=== PATIENT | male | born 1965 | race Caucasian/White ===

== ENCOUNTER 2021-02-18 05:27 | Inpatient (IN) | payer MEDICAID ==
[2021-02-12 12:57] LABS: BASOPHILS # (AUTO) 0.1 X10'3 (0-0.2); BASOPHILS % (AUTO) 0.7 % (0-1); EOSINOPHILS # (AUTO) 0.1 X10'3 (0-0.9); LYMPHOCYTES # (AUTO) 1.8 X10'3 (1.1-4.8); LYMPHOCYTES % (AUTO) 19.9 % (21-51); MEAN CORPUSCULAR HEMOGLOBIN 28.6 PG (27.0-31.0); MEAN CORPUSCULAR HGB CONC 33.3 g/dL (33.0-36.5); MEAN CORPUSCULAR VOLUME 85.7 FL (78-98); MEAN PLATELET VOLUME 8.2 FL (7.4-10.4); MONOCYTES # (AUTO) 0.8 X10'3 (0-0.9); MONOCYTES % (AUTO) 9.4 % (2-12); NEUTROPHILS # (AUTO) 6.1 X10'3 (1.8-7.7); PRE OP HEMATOCRIT 47.7 % (42.0-52.0); PRE OP HEMOGLOBIN 15.9 g/dL (14.0-17.9); PRE OP PLATELET COUNT 242 X10'3 (140-440); RED BLOOD COUNT 5.56 X10'6 (4.70-6.10); RED CELL DISTRIBUTION WIDTH 14.1 % (11.5-14.5)
[2021-02-12 13:09] LABS: PRE OP INR 1.1 INR; PRE OP PROTIME 11.3 SECONDS (9.0-12.0)
[2021-02-12 13:12] LABS: ALBUMIN 3.9 G/DL (3.4-5.0); ALBUMIN/GLOBULIN RATIO 1.1 (1.1-1.5); ALKALINE PHOSPHATASE 102 IU/L (46-116); BLOOD UREA NITROGEN 19 MG/DL (7-18); BUN/CREATININE RATIO 20.4 (5.4-32.0); CALCIUM 8.8 MG/DL (8.5-10.1); CHLORIDE 105 MMOL/L (99-107); CREATININE 0.93 MG/DL (0.60-1.10); PRE OP ALT 30 U/L (30-65); PRE OP ANION GAP 6 (8-16); PRE OP AST 10 U/L (10-37); PRE OP BILIRUB, TOTAL 0.7 MG/DL (0.0-1.0); PRE OP GLUCOSE 84 MG/DL (70-104); PRE OP POTASSIUM 4.3 MMOL/L (3.4-5.1); PRE OP SODIUM 142 MMOL/L (135-145); TOTAL CARBON DIOXIDE 30.6 MMOL/L (24-32); TOTAL PROTEIN 7.6 G/DL (6.4-8.2); eGFR 85 ML/MIN
[2021-02-12 13:42] LABS: CLARITY,URINE CLEAR (Clear); COLOR,URINE YELLOW (Yellow); GLUCOSE, URINE NEGATIVE (Neg); PROTEIN,URINE NEGATIVE (Neg); UA COLLECTION TYPE VOIDED
[2021-02-12 13:43] LABS: KETONES,URINE NEGATIVE (Neg); LEUKOCYTE ESTERASE ,URINE NEGATIVE (Neg); NITRITES, URINE NEGATIVE (Neg); OCCULT BLOOD,URINE NEGATIVE (Neg); UROBILINOGEN,URINE 0.2 E.U/dL (0.2-1.0)
[2021-02-18] VITALS (13 sets, daily range): BP systolic 102–171; BP diastolic 63–103
[~2021-02-18] VITALS: Ht 182.9 cm; Wt 122.5 kg
[~2021-02-18 05:27] MED LIST: NO HOME MEDS; ringers solution, lacted 1,000 ML IV SCH
[2021-02-18] MEDS ORDERED: famotidine 20mg tablet PO ONE (05:30)
[2021-02-18] MEDS ORDERED: heparin, porcine 5000 units/ml vial SQ ONE (05:30)
[2021-02-18] MEDS ORDERED: metroNIDAZOLE-Flagyl 500mg/NS 100ml IVPB IV ONE (05:30)
[2021-02-18] MEDS ORDERED: ceFOXitin 2GM-NS 100mL ADDvant 100 ML IV ONE (05:30)
[2021-02-18] MEDS ORDERED: MALTODEXTRIN/FRUCTOSE 0.68 KCAL/ML LIQUID 296ML BOTTLE PO ONE (05:30)
[2021-02-18] MEDS ORDERED: metroNIDAZOLE-Flagyl 500mg/NS 100 ML IV ONE (06:40)
[2021-02-18] MEDS ORDERED: heparin 10,000 units/1 ML INJ ONE (06:40)
[2021-02-18] MEDS ORDERED: BUPIVAcaine/PF 2.5mg/ml (0.25%) 10ml vial ONE ×2 (06:41→07:13)
[2021-02-18] MEDS ORDERED: iohexol 300 MG/1 ML 50ml polymer ONE (06:41)
[2021-02-18] MEDS ORDERED: povidone-iodine 10% ointment 1 APPLIC APPLIC TP ONE (06:41)
[2021-02-18] MEDS ORDERED: INDOCYANINE GREEN 25 MG/10 ML VIAL IV ONE (06:41)
[2021-02-18] MEDS ORDERED: LIDOCAINE 1%/EPI 1:100,000 inj. 10 ML multi-dose vial ONE (06:41)
[2021-02-18] MEDS ORDERED: labetalol 20mg/4ml (5mg/ml) syringe IV PRN (07:10)
[2021-02-18] MEDS ORDERED: ringers solution, lacted 1,000 ML IV SCH (07:10)
[2021-02-18] MEDS ORDERED: morphine 2 MG/ML inj. syringe IV PRN (07:10)
[2021-02-18] MEDS ORDERED: fentaNYL/PF 50MCG/1 ML 2ML syringe IV PRN ×2 (07:10)
[2021-02-18] MEDS ORDERED: hydrALAZINE 20mg/ml inj. IV PRN (07:10)
[2021-02-18] MEDS ORDERED: ondansetron/PF 4mg/2ml inj IV PRN ×2 (07:10→14:30)
[2021-02-18] MEDS ORDERED: morphine 4 MG/ML inj SYRINge IV PRN (07:10)
[2021-02-18] MEDS ORDERED: BUPIVACAINE liposomal/PF 13.3 MG/ML vial IM ONE (07:13)
[2021-02-18] MEDS ORDERED: midazolam 1 mg/ML 2ml injection ONE (07:15)
[2021-02-18] MEDS ORDERED: fentaNYL/PF 50MCG/1 ML 2ML syringe ONE ×2 (07:15→10:58)
[2021-02-18] MEDS ORDERED: propofol inj 20 ML IV ONE (07:17)
[2021-02-18] MEDS ORDERED: LIDOcaine 2% (20mg/ml) 5ml vial ONE (07:17)
[2021-02-18] MEDS ORDERED: dexamethasone sod phosphate 4mg/ml inj. ONE (07:18)
[2021-02-18] MEDS ORDERED: ondansetron/PF 4mg/2ml inj ONE (07:18)
[2021-02-18] MEDS ORDERED: rocuronium 10mg/ml inj IV ONE ×4 (07:18→12:17)
[2021-02-18] MEDS ORDERED: mineral oil 10ml sterile, topical TP ONE (08:03)
[2021-02-18] MEDS ORDERED: LIDOcaine 1% 30ml preserv. free vial ONE ×2 (09:04→10:00)
[2021-02-18] MEDS ORDERED: labetalol 20mg/4ml (5mg/ml) syringe IV ONE (10:32)
[2021-02-18] MEDS ORDERED: glycopyrrolate 0.2mg/ml inj ONE (12:44)
[2021-02-18] MEDS ORDERED: neostigmine methylsulfate 1 MG/ML 10ml vial ONE (12:44)
--- NOTE | 2021-02-18 13:20 | NUR ---
ARRIVED IN PACU UNRESPONSIVE AND COLOR POOR, BLUISH BARBOZA. SA02 UNABLE TO OBTAIN. DR. TABARES IN ATTENDANCE. IMMEDIATE AMBU BAG INITIATED UNABLE TO VENTILATE. HR DECREASING ALONG WITH BP, PT STILL UNRESPONSIVE. CODE CASSIUS CALLED. DR SUH, DR. GUTIERRES PARTICIPATED IN RESUSCITATION. PLEASE SEE CODE BLUE SHEET. TRANSFERRED TO ICU INTUBATED REPORT TO DR. HEARD, CARE HAND OFF TO ICU NURSE @ [id number].
[2021-02-18] MEDS ORDERED: propofol 1000mg/100ml bottle 100 ML IV ONE (13:55)
--- NOTE | 2021-02-18 14:00 | NUR ---
Assumed care of pt. Dr Reveles and Dr Washington at bedside.
[2021-02-18] MEDS ORDERED: CISatracurium **Bolus** 2 mg/ml inj IV PRN (14:05)
[2021-02-18] MEDS ORDERED: magnesium 4gm in 100ml NS 100 ML IV PRN (14:05)
[2021-02-18] MEDS ORDERED: magnesium 2GM in 50ml NS 50 ML IV PRN (14:05)
[2021-02-18] MEDS ORDERED: potassium Cl 20 mEq SR tablet PO PRN (14:05)
[2021-02-18] MEDS ORDERED: magnesium Cl slow-release 64mg tablet PO PRN (14:05)
[2021-02-18] MEDS ORDERED: acetaminophen 325mg tablet PO PRN ×2 (14:30)
[2021-02-18] MEDS ORDERED: LIDOcaine 2% 10ml TOPICAL JELLY (Urojet) TP ONE (14:30)
[2021-02-18] MEDS: normal saline 1000ml 1,000 ML IV SCH (14:30)
[2021-02-18] MEDS ORDERED: ipratropium/albuterol 3ml nebule NEB PRN (14:30)
[2021-02-18] MEDS ORDERED: furosemide 40mg/4ml inj IV ONE (14:40)
[2021-02-18] MEDS: propofol 1000mg/100ml bottle 100 ML IV SCH ×2 (15:01→22:01)
[2021-02-18] MEDS: FENTANYL-0.9 % NACL/PF 100 ML IV PRN ×3 (15:02→22:43)
[2021-02-18] MEDS: CISatracurium besylate inj. 100 MG in normal saline 100ml IV soln 90 ML IV PRN ×2 (15:03→22:02)
[2021-02-18 15:15] LABS: HEMATOCRIT 46.1 % (42.0-52.0); MEAN CORPUSCULAR HEMOGLOBIN 28.3 PG (27.0-31.0); MEAN CORPUSCULAR HGB CONC 32.5 g/dL (33.0-36.5); MEAN CORPUSCULAR VOLUME 87.1 FL (78-98); MEAN PLATELET VOLUME 8.8 FL (7.4-10.4); PLATELET COUNT 264 X10'3 (140-440); RED CELL DISTRIBUTION WIDTH 14.1 % (11.5-14.5)
[2021-02-18] MEDS ORDERED: vancomycin/NS 1 GM ADD-VANTAGE 250 ML IV ONE (15:20)
[2021-02-18 15:22] LABS: ABG BASE EXCESS -9.4 mmol/L (-2.0-2.0); ABG HCO3 18.7 mmol/L (22.0-26.0); ABG OXYGEN SATURATION 97.7 % (94-97); ABG PCO2 (T) 47.4 mmHg (35.0-48.0); FCOHb 0.3 % (0.0-3.9); FMetHb 0.6 % (0.0-1.5); FO2Hb 96.8 % (94-97); PATIENT TEMPERATURE 36.5; PEEP 10 cm H2O; RESPIRATORY RATE 16 b/min; TIDAL VOLUME 568 mL; TOTAL HEMOGLOBIN 15.8 G/dl (14.0-18.0)
[2021-02-18] MEDS: pantoprazole 40 MG vial IV SCH (15:23)
[2021-02-18 15:24] LABS: PARTIAL THROMBOPLASTIN TIME 27 SECONDS (22-32)
[2021-02-18 15:33] LABS: ALANINE AMINOTRANSFERASE 78 U/L (12-78); ALBUMIN 3.3 G/DL (3.4-5.0); ALKALINE PHOSPHATASE 90 IU/L (46-116); ANION GAP 20 (8-16); ASPARTATE AMINO TRANSFERASE 52 U/L (10-37); BILIRUBIN,TOTAL 0.8 MG/DL (0.1-1.0); BLOOD UREA NITROGEN 18 MG/DL (7-18); BUN/CREATININE RATIO 9.7 (5.4-32.0); CALCIUM 8.1 MG/DL (8.5-10.1); CHLORIDE 103 MMOL/L (99-107); CREATININE 1.85 MG/DL (0.60-1.10); GLUCOSE 246 MG/DL (70-104); POTASSIUM 4.8 MMOL/L (3.5-5.1); SODIUM 141 MMOL/L (135-145); TOTAL CARBON DIOXIDE 18.5 MMOL/L (24-32); TOTAL PROTEIN 6.7 G/DL (6.4-8.2); eGFR 38 ML/MIN
[2021-02-18] MEDS: thiamine inj. 100 MG in normal saline 100ml IV soln 100 ML IV SCH (15:34)
[2021-02-18] MEDS: folic acid 1mg/0.2ml inj IV SCH (15:42)
[2021-02-18 15:44] LABS: BETA HCG,QUANTITATIVE < 1.0 mIU/ml; LDL CHOLESTEROL 110 MG/DL (50-100); MAGNESIUM 1.8 MG/DL (1.5-2.4); PHOSPHORUS 6.7 MG/DL (2.3-4.5); PLATELET ESTIMATE NORMAL; TOTAL CELLS COUNTED 100; TROPONIN I < 0.04 NG/ML (0.0-0.05)
[2021-02-18 15:47] LABS: PLATELET COUNT 264 X10'3 (140-440)
[2021-02-18] MEDS: dexamethasone sod phosphate 10mg/ml inj IV SCH (15:55)
[2021-02-18] MEDS ORDERED: dexamethasone sod phosphate 10mg/ml inj IM SCH (16:00)
[2021-02-18 16:14] LABS: D-DIMER 19.55 MG/L FEU (0-0.50); PARTIAL THROMBOPLASTIN TIME 27 SECONDS (22-32)
[2021-02-18 16:29] LABS: LACTIC SEPSIS 9.1 MMOL/L (0.4-2.0)
[2021-02-18] MEDS: meperidine/PF 25mg/ml syringe IV SCH ×2 (16:30→20:54)
[2021-02-18] MEDS: mineral oil/petrolatum ophthal oint EACHEYE SCH ×2 (16:36→20:55)
[2021-02-18 16:46] LABS: OXYGEN SATURATION (MIXED VEN) 73.6 % (60-80); PO2 MIXED VENOUS (TEMP COR) 39.8 mmHg (35-46)
[2021-02-18] MEDS: nitroGLYCERIN-Tridil 50MG/D5W 250 ML IV PRN (17:24)
[2021-02-18] MEDS: piperacillin/tazo 4.5gm/100ml 100 ML IV SCH (17:53)
--- NOTE | 2021-02-18 18:25 | NUR ---
Problems reprioritized. Patient report given, questions answered & plan of care reviewed with JUNIOR Simental.
[2021-02-18 19:33] LABS: ABG BASE EXCESS -4.6 mmol/L (-2.0-2.0); ABG HCO3 18.1 mmol/L (22.0-26.0); ABG OXYGEN SATURATION 97.8 % (94-97); ABG PCO2 (T) 24.8 mmHg (35.0-48.0); ABG PO2 (T) 86.1 mmHg (75.0-100.0); FCOHb 0.1 % (0.0-3.9); FMetHb 0.3 % (0.0-1.5); FO2Hb 97.4 % (94-97); PATIENT TEMPERATURE 33.9; PEEP 10 cm H2O; RESPIRATORY RATE 20 b/min; TIDAL VOLUME 500 mL; TOTAL HEMOGLOBIN 16.5 G/dl (14.0-18.0)
[2021-02-18] MEDS ORDERED: furosemide 40mg/4ml inj IV SCH (20:00)
[2021-02-18] MEDS: insulin Lispro (HumaLOG) vial - multi-dose SQ SCH (20:00)
[2021-02-18] MEDS ORDERED: piperacillin/tazo 4.5gm/100ml 100 ML IV SCH (20:00)
--- NOTE | 2021-02-18 20:14 | NUR ---
I have received report and assumed care of pt. Pt resting in bed rise and fall of chest cavity equile and symmetrical, Myclonic jerking noted at 27 sec interval, upper extremities only, does not respond to verbal stimuli and no notable tactical response noted, eyes are pin point negative dolls eyes no startle reflex noted. Dr. Washington called [phone]) up dated on pts condition. Spoke to Dr. Blankenship new orders for 24 hour eeg and to turn peep down to 8, report given to receiving RN, plan of care reviewed EEG osmani paged.
[2021-02-18] MEDS: heparin, porcine 5000 units/ml vial SQ SCH (20:54)
[2021-02-18 21:52] LABS: ALBUMIN 2.1 G/DL (3.4-5.0); ANION GAP 14 (8-16); BLOOD UREA NITROGEN 13 MG/DL (7-18); BUN/CREATININE RATIO 14.9 (5.4-32.0); CHLORIDE 116 MMOL/L (99-107); CKMB RELATIVE INDEX 1.5 RATIO (0-2.5); CREATINE KINASE 214 U/L (39-308); CREATININE 0.87 MG/DL (0.60-1.10); GLUCOSE 150 MG/DL (70-104); MAGNESIUM 1.2 MG/DL (1.5-2.4); SODIUM 147 MMOL/L (135-145); TOTAL CARBON DIOXIDE 16.6 MMOL/L (24-32); TROPONIN I 0.05 NG/ML (0.0-0.05); eGFR > 90 ML/MIN
[2021-02-18 22:03] LABS: CALCIUM 5.6 MG/DL (8.5-10.1); POTASSIUM 2.4 MMOL/L (3.5-5.1)
[2021-02-18] MEDS ORDERED: potassium Cl 20 mEq/100mL bag IV ONE (22:10)
[2021-02-18] MEDS: CALCIUM GLUC 1gm/50ml NACL,iso 50 ML IV SCH (22:43)
[2021-02-18] MEDS: potassium Cl 20 mEq/100mL bag IV SCH (23:15)
[2021-02-19] VITALS (24 sets, daily range): BP systolic 99–192; BP diastolic 57–103
[2021-02-19] MEDS: dexamethasone sod phosphate 10mg/ml inj IV SCH ×3 (00:39→16:00)
[2021-02-19] MEDS: piperacillin/tazo 4.5gm/100ml 100 ML IV SCH ×3 (00:39→16:00)
[2021-02-19] MEDS: mineral oil/petrolatum ophthal oint EACHEYE SCH ×6 (00:39→20:12)
[2021-02-19] MEDS: CALCIUM GLUC 1gm/50ml NACL,iso 50 ML IV SCH (00:39)
[2021-02-19] MEDS: potassium Cl 20 mEq/100mL bag IV SCH ×2 (00:40→01:17)
[2021-02-19] MEDS: meperidine/PF 25mg/ml syringe IV SCH ×6 (00:53→20:11)
[2021-02-19 02:35] LABS: ABG BASE EXCESS -3.9 mmol/L (-2.0-2.0); ABG HCO3 18.4 mmol/L (22.0-26.0); ABG PCO2 (T) 23.4 mmHg (35.0-48.0); ABG PO2 (T) 96.1 mmHg (75.0-100.0); FMetHb 0.3 % (0.0-1.5); FO2Hb 97.7 % (94-97); PATIENT TEMPERATURE 33.6; PEEP 8 cm H2O; RESPIRATORY RATE 20 b/min; TIDAL VOLUME 500 mL; TOTAL HEMOGLOBIN 15.7 G/dl (14.0-18.0)
[2021-02-19] MEDS: vancomycin/NS 1 GM ADD-VANTAGE 250 ML IV SCH ×2 (03:41→16:00)
[2021-02-19] MEDS: FENTANYL-0.9 % NACL/PF 100 ML IV PRN ×5 (03:41→23:04)
[2021-02-19 03:51] LABS: BASOPHILS % (AUTO) 0.3 % (0-1); EOSINOPHILS % (AUTO) 0.1 % (0-6); HEMATOCRIT 43.4 % (42.0-52.0); HEMOGLOBIN 14.4 g/dl (14.0-17.9); LYMPHOCYTES # (AUTO) 0.6 X10'3 (1.1-4.8); LYMPHOCYTES % (AUTO) 4.3 % (21-51); MEAN CORPUSCULAR HEMOGLOBIN 28.5 PG (27.0-31.0); MEAN CORPUSCULAR HGB CONC 33.3 g/dL (33.0-36.5); MEAN CORPUSCULAR VOLUME 85.6 FL (78-98); MEAN PLATELET VOLUME 8.7 FL (7.4-10.4); MONOCYTES # (AUTO) 0.7 X10'3 (0-0.9); MONOCYTES % (AUTO) 4.7 % (2-12); NEUTROPHILS # (AUTO) 12.7 X10'3 (1.8-7.7); NEUTROPHILS % (AUTO) 90.6 % (42-75); PLATELET COUNT 208 X10'3 (140-440); RED BLOOD COUNT 5.07 X10'6 (4.70-6.10); RED CELL DISTRIBUTION WIDTH 13.8 % (11.5-14.5)
[2021-02-19 03:53] LABS: PARTIAL THROMBOPLASTIN TIME 24 SECONDS (22-32)
[2021-02-19 03:55] LABS: ALANINE AMINOTRANSFERASE 65 U/L (12-78); ALBUMIN 2.9 G/DL (3.4-5.0); ALBUMIN/GLOBULIN RATIO 0.9 (1.1-1.5); ALKALINE PHOSPHATASE 75 IU/L (46-116); AMYLASE 20 U/L (25-115); ANION GAP 14 (8-16); ASPARTATE AMINO TRANSFERASE 37 U/L (10-37); BILIRUBIN,TOTAL 0.7 MG/DL (0.1-1.0); BLOOD UREA NITROGEN 16 MG/DL (7-18); BUN/CREATININE RATIO 12.1 (5.4-32.0); CHLORIDE 107 MMOL/L (99-107); CREATININE 1.32 MG/DL (0.60-1.10); GLUCOSE 182 MG/DL (70-104); LIPASE < 50 U/L (73-393); MAGNESIUM 1.7 MG/DL (1.5-2.4); PHOSPHORUS 2.7 MG/DL (2.3-4.5); SODIUM 142 MMOL/L (135-145); TOTAL PROTEIN 6.1 G/DL (6.4-8.2); TRIGLYCERIDES 82 MG/DL (20-135); eGFR 57 ML/MIN
[2021-02-19 03:56] LABS: POTASSIUM 3.5 MMOL/L (3.5-5.1)
[2021-02-19] MEDS: normal saline 1000ml 1,000 ML IV SCH ×3 (04:13→22:07)
[2021-02-19] MEDS: propofol 1000mg/100ml bottle 100 ML IV SCH ×2 (07:15→21:02)
--- NOTE | 2021-02-19 07:30 | NUR ---
Dr Novak rounded. He asked about pt's bradycardia, and asked about abnormal labs, and urine output. After assessing pt he removed ureteral stents.
[2021-02-19] MEDS ORDERED: enoxaparin 40mg/0.4ml syringe SUBCUT SCH (08:00)
[2021-02-19] MEDS ORDERED: folic acid inj. 2 MG, thiamine inj. 100 MG, MVI, adult No.4 with vit. K 10 ML in dextro... IV SCH ×4 (08:00)
[2021-02-19] MEDS: pantoprazole 40 MG vial IV SCH (08:15)
[2021-02-19] MEDS: thiamine inj. 100 MG in normal saline 100ml IV soln 100 ML IV SCH (08:16)
[2021-02-19] MEDS: heparin, porcine 5000 units/ml vial SQ SCH ×2 (08:16→20:00)
[2021-02-19] MEDS: folic acid 1mg/0.2ml inj IV SCH (08:18)
[2021-02-19] MEDS: insulin Lispro (HumaLOG) vial - multi-dose SQ SCH ×3 (09:00→17:39)
[2021-02-19 09:06] LABS: ALBUMIN 3.1 G/DL (3.4-5.0); ANION GAP 12 (8-16); BLOOD UREA NITROGEN 19 MG/DL (7-18); CALCIUM 8.6 MG/DL (8.5-10.1); CHLORIDE 104 MMOL/L (99-107); CKMB RELATIVE INDEX 2.7 RATIO (0-2.5); CREATINE KINASE 312 U/L (39-308); CREATININE 1.36 MG/DL (0.60-1.10); GLUCOSE 174 MG/DL (70-104); MAGNESIUM 1.8 MG/DL (1.5-2.4); POTASSIUM 3.7 MMOL/L (3.5-5.1); SODIUM 138 MMOL/L (135-145); TROPONIN I < 0.04 NG/ML (0.0-0.05); eGFR 55 ML/MIN
[2021-02-19] MEDS: CISatracurium besylate inj. 100 MG in normal saline 100ml IV soln 90 ML IV PRN (09:27)
[2021-02-19] MEDS ORDERED: NORepinephrine 1 mg/ml inj IV ONE (10:00)
--- NOTE | 2021-02-19 11:19 | NUR ---
Initial: Pt admitted for colostomy reversal, underwent colostomy takedown 02/18 per EMR. Gerardo javier called in recovery room, pt subsequently intubated and sedated. Propofol currently at 3.489 providing 92kcals/day. Per Surgeon note, pt okay to receive TF; though waiting for pt to become more stable per Counsellors. TF recs provided below, may adjust depending on Propofol rate. No open wounds documented. Will continue to monitor need for nutrition support. Recs: 1) IF prolonged intubation, continuous TF using Vital HP at 90ml/hr goal providing 2160ml volume, 2160kcals, 189g protein, 1814ml H2O 2) IF TF, additional free water 100ml Q4H; monitor serum Na 3) IF TF, PALB QM/Th; daily wts 4) Routine bowel care 5) Monitor for TF tolerance 6) If extubated, advance to Regular diet as tolerated Addendum: 02/19/21 at [address] Amended: Links added.
[2021-02-19] MEDS ORDERED: epiNEPHrine 0.1mg/ml 10ml syringe ONE (14:00)
[2021-02-19 15:27] LABS: ALANINE AMINOTRANSFERASE 59 U/L (12-78); ALBUMIN/GLOBULIN RATIO 0.9 (1.1-1.5); ALKALINE PHOSPHATASE 73 IU/L (46-116); ANION GAP 12 (8-16); ASPARTATE AMINO TRANSFERASE 31 U/L (10-37); BILIRUBIN,TOTAL 0.8 MG/DL (0.1-1.0); BLOOD UREA NITROGEN 19 MG/DL (7-18); BUN/CREATININE RATIO 17.9 (5.4-32.0); CALCIUM 8.6 MG/DL (8.5-10.1); CHLORIDE 107 MMOL/L (99-107); CREATININE 1.06 MG/DL (0.60-1.10); GLUCOSE 156 MG/DL (70-104); POTASSIUM 3.4 MMOL/L (3.5-5.1); SODIUM 141 MMOL/L (135-145); TOTAL CARBON DIOXIDE 22.5 MMOL/L (24-32); TOTAL PROTEIN 6.3 G/DL (6.4-8.2); eGFR 73 ML/MIN
[2021-02-19] MEDS ORDERED: potassium Cl 40MEQ/250ML bag 270 ML IV PRN ×2 (15:35)
[2021-02-19 20:24] LABS: ABG BASE EXCESS -2.8 mmol/L (-2.0-2.0); ABG HCO3 19.5 mmol/L (22.0-26.0); ABG OXYGEN SATURATION 94.6 % (94-97); ABG PCO2 (T) 23.3 mmHg (35.0-48.0); ABG PO2 (T) 52.3 mmHg (75.0-100.0); ALLEN'S TEST POSITIVE; FCOHb 0.2 % (0.0-3.9); FMetHb 0.1 % (0.0-1.5); FO2Hb 94.3 % (94-97); PATIENT TEMPERATURE 32.6; PEEP 5 cm H2O; RESPIRATORY RATE 18 b/min; TIDAL VOLUME 500 mL; TOTAL HEMOGLOBIN 15.1 G/dl (14.0-18.0)
[2021-02-20] VITALS (23 sets, daily range): BP systolic 103–164; BP diastolic 42–81
[2021-02-20] MEDS: meperidine/PF 25mg/ml syringe IV SCH ×3 (00:25→07:39)
[2021-02-20] MEDS: mineral oil/petrolatum ophthal oint EACHEYE SCH ×7 (00:25→23:08)
[2021-02-20] MEDS: dexamethasone sod phosphate 10mg/ml inj IV SCH ×4 (00:25→23:08)
[2021-02-20] MEDS: piperacillin/tazo 4.5gm/100ml 100 ML IV SCH ×4 (00:30→23:08)
[2021-02-20 02:52] LABS: ABG BASE EXCESS -2.3 mmol/L (-2.0-2.0); ABG HCO3 21.5 mmol/L (22.0-26.0); ABG OXYGEN SATURATION 97.3 % (94-97); ABG PCO2 (T) 30.9 mmHg (35.0-48.0); ABG PO2 (T) 84.3 mmHg (75.0-100.0); FCOHb 0.1 % (0.0-3.9); FMetHb 0.4 % (0.0-1.5); FO2Hb 96.8 % (94-97); PATIENT TEMPERATURE 34.6; PEEP 5 cm H2O; RESPIRATORY RATE 18 b/min; TIDAL VOLUME 500 mL
[2021-02-20 03:09] LABS: BASOPHILS % (AUTO) 0.1 % (0-1); EOSINOPHILS % (AUTO) 0 % (0-6); HEMATOCRIT 36.1 % (42.0-52.0); LYMPHOCYTES # (AUTO) 0.4 X10'3 (1.1-4.8); LYMPHOCYTES % (AUTO) 2.2 % (21-51); MEAN CORPUSCULAR HEMOGLOBIN 28.4 PG (27.0-31.0); MEAN CORPUSCULAR HGB CONC 33.2 g/dL (33.0-36.5); MEAN CORPUSCULAR VOLUME 85.3 FL (78-98); MEAN PLATELET VOLUME 8.9 FL (7.4-10.4); MONOCYTES # (AUTO) 0.8 X10'3 (0-0.9); MONOCYTES % (AUTO) 4.8 % (2-12); NEUTROPHILS # (AUTO) 15.6 X10'3 (1.8-7.7); NEUTROPHILS % (AUTO) 92.9 % (42-75); PLATELET COUNT 170 X10'3 (140-440); RED BLOOD COUNT 4.22 X10'6 (4.70-6.10); RED CELL DISTRIBUTION WIDTH 13.8 % (11.5-14.5); WHITE BLOOD COUNT 16.8 X10'3 (4.5-11.0)
[2021-02-20 03:20] LABS: PARTIAL THROMBOPLASTIN TIME 33 SECONDS (22-32)
[2021-02-20] MEDS ORDERED: VANCOMYCIN LEVEL IV ONE (03:30)
[2021-02-20 03:41] LABS: CKMB RELATIVE INDEX 3.1 RATIO (0-2.5); CREATINE KINASE 192 U/L (39-308); TROPONIN I < 0.04 NG/ML (0.0-0.05)
[2021-02-20 03:45] LABS: ALANINE AMINOTRANSFERASE 39 U/L (12-78); ALBUMIN 2.1 G/DL (3.4-5.0); ALBUMIN/GLOBULIN RATIO 0.8 (1.1-1.5); ALKALINE PHOSPHATASE 55 IU/L (46-116); ANION GAP 5 (8-16); ASPARTATE AMINO TRANSFERASE 22 U/L (10-37); BILIRUBIN,TOTAL 0.5 MG/DL (0.1-1.0); BLOOD UREA NITROGEN 19 MG/DL (7-18); BUN/CREATININE RATIO 20.7 (5.4-32.0); CALCIUM 6.4 MG/DL (8.5-10.1); CHLORIDE 114 MMOL/L (99-107); CREATININE 0.92 MG/DL (0.60-1.10); GLUCOSE 117 MG/DL (70-104); SODIUM 140 MMOL/L (135-145); TOTAL CARBON DIOXIDE 21.3 MMOL/L (24-32); TOTAL PROTEIN 4.6 G/DL (6.4-8.2); eGFR 86 ML/MIN
[2021-02-20 03:46] LABS: AMYLASE 21 U/L (25-115); LIPASE < 50 U/L (73-393); MAGNESIUM 1.4 MG/DL (1.5-2.4); PHOSPHORUS 2.9 MG/DL (2.3-4.5); VANCOMYCIN,TROUGH 10.9 UG/ML (6.0-14.0)
[2021-02-20] MEDS: FENTANYL-0.9 % NACL/PF 100 ML IV PRN ×4 (04:00→23:33)
[2021-02-20] MEDS: vancomycin/NS 1 GM ADD-VANTAGE 250 ML IV SCH ×3 (04:38→19:55)
[2021-02-20] MEDS: propofol 1000mg/100ml bottle 100 ML IV SCH ×3 (05:33→23:08)
--- NOTE | 2021-02-20 06:25 | NUR ---
Patient in room ICU 2041. I have received report from JUNIOR Grider and had the opportunity to ask questions and assume patient care.
--- NOTE | 2021-02-20 07:00 | NUR ---
MD Visit Dr. Washington to see pt. Reviewed pt conditions. No orders. Requested update if/when pts condition changes.
[2021-02-20] MEDS: thiamine inj. 100 MG in normal saline 100ml IV soln 100 ML IV SCH (07:17)
[2021-02-20] MEDS: pantoprazole 40 MG vial IV SCH (07:17)
[2021-02-20] MEDS: insulin Lispro (HumaLOG) vial - multi-dose SQ SCH ×2 (09:00→13:00)
[2021-02-20] MEDS: heparin, porcine 5000 units/ml vial SQ SCH ×2 (09:08→19:56)
--- NOTE | 2021-02-20 09:31 | NUR ---
MD Visit Dr Reveles here. Update provided. Aware of Dd 19.55. JEAN-CLAUDE samano will address later. Addendum: 02/20/21 at 0934 by Chris Daly RN Discussed nutrition - no feeding tube currently in place. Dr. Reveles recommended waiting as abd surgical pt as well difficult airway and associated swelling. He'll defer to Dr. Washington for tube feeds.
[2021-02-20] MEDS: folic acid 1mg/0.2ml inj IV SCH (11:00)
--- NOTE | 2021-02-20 11:22 | NUR ---
Movement: Nimbex is now off x 30+ mins. Providing oral care, pt moved both arms toward mouth during oral suctioning. Restraints reapplied as pt is difficult airway. Comfit changed to anchor fast by RT with RN assist. Pt opens eyes to his name but did not squeeze hands to command, yet. Dr Reveles to see pt open eyes. He sent text to Dr. Washington about this change. Pt mother called about 1.5 hours ago and will be in about 1400.
--- NOTE | 2021-02-20 11:42 | NUR ---
TF Consult: Pt may get Corpak today per Past Due Accounts Clerk. Propofol currently at 12ml/hr providing 317kcals, see updated recs below (to be adjusted based on propofol). Initial: Pt admitted for colostomy reversal, underwent colostomy takedown 02/18 per EMR. Gerardo herrera called in recovery room, pt subsequently intubated and sedated. Propofol currently at 3.489 providing 92kcals/day. Per Surgeon note, pt okay to receive TF; though waiting for pt to become more stable per Past Due Accounts Clerk. TF recs provided below, may adjust depending on Propofol rate. No open wounds documented. Will continue to monitor need for nutrition support. Recs: 1) Continuous TF using Vital HP at 78ml/hr goal providing 1872ml volume, 1872kcals, 164g protein, 1572ml H2O 2) Additional free water 100ml Q4H; monitor serum Na 3) PALB QM/Th; daily wts 4) Routine bowel care 5) Monitor for TF tolerance 6) If extubated, advance to Regular diet as tolerated Addendum: 02/20/21 at [address] Amended: Links added.
--- NOTE | 2021-02-20 14:11 | NUR ---
NG Placement NG placed with CN assistance to Rt nares. Confirmed by auscultation and NG to low intermittent suction with reture of greenish/yellow stomach content. Pts BP to 190/94 during insertion. Left side attempted first without success but Rt side went right in. Will add tube feeding when pump available.
[2021-02-20] MEDS ORDERED: bisacodyl 10mg suppository rectal RC PRN (14:30)
--- NOTE | 2021-02-20 15:22 | NUR ---
Fam Visit Mother to see pt. Pt opened eyes to name (possible just loud noise). Not following commands but moves hands toward mouth when oral care being provided.
[2021-02-20] MEDS ORDERED: insulin regular, human U-100 3ml vial - multi-dose SQ SCH (18:00)
--- NOTE | 2021-02-20 18:22 | NUR ---
Problems reprioritized. Patient report given, questions answered & plan of care reviewed with Marni PACHECO.
[2021-02-20] MEDS: normal saline 1000ml 1,000 ML IV SCH (19:56)
[2021-02-21] VITALS (24 sets, daily range): BP systolic 106–198; BP diastolic 55–87
[2021-02-21] MEDS ORDERED: VANCOMYCIN LEVEL IV ONE (03:30)
[2021-02-21 03:39] LABS: ABG BASE EXCESS -3.5 mmol/L (-2.0-2.0); ABG HCO3 21.7 mmol/L (22.0-26.0); ABG OXYGEN SATURATION 96.1 % (94-97); ABG PCO2 (T) 39.2 mmHg (35.0-48.0); ABG PO2 (T) 83.8 mmHg (75.0-100.0); FCOHb 0.1 % (0.0-3.9); FMetHb 0.4 % (0.0-1.5); FO2Hb 95.6 % (94-97); PATIENT TEMPERATURE 36.7; PEEP 5 cm H2O; RESPIRATORY RATE 18 b/min; TIDAL VOLUME 500 mL; TOTAL HEMOGLOBIN 13.5 G/dl (14.0-18.0)
[2021-02-21 03:43] LABS: BASOPHILS # (AUTO) 0.1 X10'3 (0-0.2); BASOPHILS % (AUTO) 0.3 % (0-1); EOSINOPHILS % (AUTO) 0 % (0-6); HEMATOCRIT 36.4 % (42.0-52.0); HEMOGLOBIN 11.8 g/dl (14.0-17.9); LYMPHOCYTES # (AUTO) 0.5 X10'3 (1.1-4.8); LYMPHOCYTES % (AUTO) 2.8 % (21-51); MEAN CORPUSCULAR HEMOGLOBIN 28.2 PG (27.0-31.0); MEAN CORPUSCULAR HGB CONC 32.5 g/dL (33.0-36.5); MEAN CORPUSCULAR VOLUME 86.9 FL (78-98); MEAN PLATELET VOLUME 9.4 FL (7.4-10.4); MONOCYTES # (AUTO) 1.1 X10'3 (0-0.9); MONOCYTES % (AUTO) 5.6 % (2-12); NEUTROPHILS # (AUTO) 17.9 X10'3 (1.8-7.7); NEUTROPHILS % (AUTO) 91.3 % (42-75); PLATELET COUNT 203 X10'3 (140-440); RED BLOOD COUNT 4.19 X10'6 (4.70-6.10); RED CELL DISTRIBUTION WIDTH 14.3 % (11.5-14.5); WHITE BLOOD COUNT 19.6 X10'3 (4.5-11.0)
[2021-02-21 03:52] LABS: PARTIAL THROMBOPLASTIN TIME 27 SECONDS (22-32)
[2021-02-21 03:58] LABS: ALANINE AMINOTRANSFERASE 42 U/L (12-78); ALBUMIN 2.3 G/DL (3.4-5.0); ALBUMIN/GLOBULIN RATIO 0.8 (1.1-1.5); ALKALINE PHOSPHATASE 51 IU/L (46-116); ANION GAP 11 (8-16); ASPARTATE AMINO TRANSFERASE 27 U/L (10-37); BILIRUBIN,TOTAL 0.3 MG/DL (0.1-1.0); BLOOD UREA NITROGEN 40 MG/DL (7-18); BUN/CREATININE RATIO 21.4 (5.4-32.0); CALCIUM 6.6 MG/DL (8.5-10.1); CHLORIDE 112 MMOL/L (99-107); CREATININE 1.87 MG/DL (0.60-1.10); GLUCOSE 148 MG/DL (70-104); POTASSIUM 4.2 MMOL/L (3.5-5.1); SODIUM 145 MMOL/L (135-145); TOTAL CARBON DIOXIDE 22.3 MMOL/L (24-32); TOTAL PROTEIN 5.1 G/DL (6.4-8.2); eGFR 38 ML/MIN
[2021-02-21 04:00] LABS: AMYLASE 194 U/L (25-115); LIPASE 1044 U/L (73-393); MAGNESIUM 1.7 MG/DL (1.5-2.4); PHOSPHORUS 4.2 MG/DL (2.3-4.5)
[2021-02-21] MEDS: vancomycin/NS 1 GM ADD-VANTAGE 250 ML IV SCH (04:00)
[2021-02-21 04:01] LABS: PREALBUMIN 19.4 MG/DL (19-36)
[2021-02-21] MEDS: mineral oil/petrolatum ophthal oint EACHEYE SCH ×4 (04:03→16:40)
[2021-02-21 04:16] LABS: VANCOMYCIN,TROUGH 23.3 UG/ML (6.0-14.0)
[2021-02-21] MEDS: FENTANYL-0.9 % NACL/PF 100 ML IV PRN ×2 (05:21→20:24)
[2021-02-21] MEDS ORDERED: VANCOMYCIN 750MG IV in NS 250 ML IV ONE (06:00)
[2021-02-21] MEDS ORDERED: vancomycin/NS 1 GM ADD-VANTAGE 250 ML IV PRN (07:05)
[2021-02-21] MEDS ORDERED: dexamethasone sod phosphate 10mg/ml inj IV SCH (08:00)
[2021-02-21] MEDS ORDERED: albumin (human) 25% 100 ML IV solution IV ONE (08:30)
[2021-02-21] MEDS: pantoprazole 40 MG vial IV SCH (09:14)
[2021-02-21] MEDS: heparin, porcine 5000 units/ml vial SQ SCH ×2 (09:14→20:37)
[2021-02-21] MEDS: folic acid 1mg/0.2ml inj IV SCH (09:15)
[2021-02-21] MEDS: thiamine inj. 100 MG in normal saline 100ml IV soln 100 ML IV SCH (09:15)
[2021-02-21] MEDS: piperacillin/tazo 4.5gm/100ml 100 ML IV SCH ×2 (09:19→16:41)
[2021-02-21] MEDS: normal saline 1000ml 1,000 ML IV SCH ×2 (09:19→22:53)
[2021-02-21] MEDS: dexamethasone inj 4 MG in normal saline 50ml IV soln 50 ML IV SCH ×2 (09:30→16:41)
[2021-02-21] MEDS ORDERED: insulin regular, human U-100 3ml vial - multi-dose SQ SCH ×2 (11:46→11:47)
[2021-02-21] MEDS: piperacillin/tazo 3.375gm/50ml 50 ML IV SCH ×2 (12:23→16:42)
--- NOTE | 2021-02-21 13:03 | NUR ---
TF Consult: Pt now off Propofol, see updated recs below. TF Consult: Pt may get Corpak today per Commercial Retoucher. Propofol currently at 12ml/hr providing 317kcals, see updated recs below (to be adjusted based on propofol). Initial: Pt admitted for colostomy reversal, underwent colostomy takedown 02/18 per EMR. Gerardo herrera called in recovery room, pt subsequently intubated and sedated. Propofol currently at 3.489 providing 92kcals/day. Per Surgeon note, pt okay to receive TF; though waiting for pt to become more stable per Commercial Retoucher. TF recs provided below, may adjust depending on Propofol rate. No open wounds documented. Will continue to monitor need for nutrition support. Recs: 1) Continuous TF using Vital HP at 90ml/hr goal providing 2160ml volume, 2160kcals, 189g protein, 1814ml H2O 2) Additional free water 100ml Q4H; monitor serum Na 3) PALB QM/Th; daily wts 4) Routine bowel care 5) Monitor for TF tolerance 6) If extubated, advance to Regular diet as tolerated Addendum: 02/21/21 at [address] Amended: Links added.
[2021-02-21 13:10] LABS: ALANINE AMINOTRANSFERASE 44 U/L (12-78); ALBUMIN 3.2 G/DL (3.4-5.0); ALBUMIN/GLOBULIN RATIO 1.1 (1.1-1.5); ALKALINE PHOSPHATASE 39 IU/L (46-116); ANION GAP 8 (8-16); ASPARTATE AMINO TRANSFERASE 28 U/L (10-37); BILIRUBIN,TOTAL 0.4 MG/DL (0.1-1.0); BLOOD UREA NITROGEN 44 MG/DL (7-18); BUN/CREATININE RATIO 23.9 (5.4-32.0); CALCIUM 7.5 MG/DL (8.5-10.1); CHLORIDE 111 MMOL/L (99-107); CREATININE 1.84 MG/DL (0.60-1.10); GLUCOSE 138 MG/DL (70-104); POTASSIUM 4.7 MMOL/L (3.5-5.1); SODIUM 145 MMOL/L (135-145); TOTAL CARBON DIOXIDE 25.9 MMOL/L (24-32); TOTAL PROTEIN 6.1 G/DL (6.4-8.2); eGFR 39 ML/MIN
[2021-02-21 13:12] LABS: HEMOGLOBIN A1C 7.6 % (4.5-6.2)
[2021-02-21] MEDS ORDERED: MESSAGE TO PHARMACY PO ONE (17:10)
[2021-02-21] MEDS ORDERED: glucagon, human recombinant 1mg kit SUBCUT PRN (17:10)
[2021-02-21] MEDS ORDERED: dextrose ORAL solution 15 GM/59 ML bottle PO PRN ×2 (17:10)
[2021-02-21] MEDS ORDERED: dextrose 50%-water 50ml dispensing syringe IV PRN ×2 (17:10)
--- NOTE | 2021-02-21 18:30 | NUR ---
Patient in room ICU 2041. I have received report from Fatuma PACHECO and had the opportunity to ask questions and assume patient care.
[2021-02-21] MEDS ORDERED: propofol 1000mg/100ml bottle 100 ML IV ONE (19:49)
--- NOTE | 2021-02-21 20:15 | NUR ---
2015: Pt restless and agitated. Called Dr for telephone order to reinstate Fentanyl and Diprivan onto EMAR for pain control and light sedation.
[2021-02-21] MEDS: propofol 1000mg/100ml bottle 100 ML IV SCH (20:25)
[2021-02-21] MEDS: lactobacillus rhamnosus 10,000 MMU CELLS/CAPSULE PO SCH (20:37)
[2021-02-21] MEDS: insulin glargine (Lantus) pen - multi-dose SQ SCH (21:00)
[2021-02-21 21:16] LABS: CLARITY,URINE CLOUDY (Clear); COLOR,URINE YELLOW (Yellow); PROTEIN,URINE TRACE mg/dl (Neg); UA COLLECTION TYPE NON-SPECIFIED
[2021-02-21 21:17] LABS: GLUCOSE, URINE NEGATIVE (Neg); KETONES,URINE NEGATIVE (Neg); LEUKOCYTE ESTERASE ,URINE NEGATIVE (Neg); NITRITES, URINE NEGATIVE (Neg); OCCULT BLOOD,URINE LARGE (Neg); UROBILINOGEN,URINE 0.2 E.U/dL (0.2-1.0)
[2021-02-21 21:29] LABS: BACTERIA,URINE 1+ /HPF (Neg); RBC,URINE TNTC /HPF (0-2)
[2021-02-21 21:30] LABS: CELLULAR CAST 0-4 /LPF (NEGATIVE); SQUAMOUS EPITHELIAL CELL,UR FEW /LPF (FEW)
[2021-02-22] VITALS (29 sets, daily range): BP systolic 96–221; BP diastolic 51–111
[2021-02-22] MEDS: dexamethasone inj 4 MG in normal saline 50ml IV soln 50 ML IV SCH ×3 (00:57→15:05)
[2021-02-22] MEDS: piperacillin/tazo 3.375gm/50ml 50 ML IV SCH ×3 (00:57→15:05)
[2021-02-22 02:51] LABS: ABG BASE EXCESS -0.1 mmol/L (-2.0-2.0); ABG OXYGEN SATURATION 93.1 % (94-97); ABG PCO2 (T) 37.3 mmHg (35.0-48.0); ABG PO2 (T) 65.9 mmHg (75.0-100.0); FCOHb 0.3 % (0.0-3.9); FMetHb 0.1 % (0.0-1.5); FO2Hb 92.7 % (94-97); PEEP 5 cm H2O; RESPIRATORY RATE 18 b/min; TIDAL VOLUME 500 mL; TOTAL HEMOGLOBIN 11.9 G/dl (14.0-18.0)
[2021-02-22] MEDS ORDERED: VANCOMYCIN LEVEL IV SCH (03:00)
[2021-02-22 03:09] LABS: BASOPHILS % (AUTO) 0.2 % (0-1); EOSINOPHILS % (AUTO) 0 % (0-6); HEMATOCRIT 33.3 % (42.0-52.0); HEMOGLOBIN 11.1 g/dl (14.0-17.9); LYMPHOCYTES # (AUTO) 0.9 X10'3 (1.1-4.8); LYMPHOCYTES % (AUTO) 4.6 % (21-51); MEAN CORPUSCULAR HEMOGLOBIN 28.7 PG (27.0-31.0); MEAN CORPUSCULAR HGB CONC 33.4 g/dL (33.0-36.5); MEAN CORPUSCULAR VOLUME 85.9 FL (78-98); MEAN PLATELET VOLUME 8.8 FL (7.4-10.4); MONOCYTES # (AUTO) 2.1 X10'3 (0-0.9); MONOCYTES % (AUTO) 10.9 % (2-12); NEUTROPHILS # (AUTO) 15.8 X10'3 (1.8-7.7); NEUTROPHILS % (AUTO) 84.3 % (42-75); PLATELET COUNT 172 X10'3 (140-440); RED BLOOD COUNT 3.88 X10'6 (4.70-6.10); RED CELL DISTRIBUTION WIDTH 14.2 % (11.5-14.5); WHITE BLOOD COUNT 18.8 X10'3 (4.5-11.0)
[2021-02-22 03:19] LABS: PARTIAL THROMBOPLASTIN TIME 28 SECONDS (22-32)
[2021-02-22 03:36] LABS: ALANINE AMINOTRANSFERASE 52 U/L (12-78); ALBUMIN 2.8 G/DL (3.4-5.0); ALKALINE PHOSPHATASE 40 IU/L (46-116); AMYLASE 338 U/L (25-115); ANION GAP 9 (8-16); ASPARTATE AMINO TRANSFERASE 36 U/L (10-37); BILIRUBIN,TOTAL 0.4 MG/DL (0.1-1.0); BLOOD UREA NITROGEN 37 MG/DL (7-18); BUN/CREATININE RATIO 30.1 (5.4-32.0); CALCIUM 7.8 MG/DL (8.5-10.1); CHLORIDE 113 MMOL/L (99-107); CREATININE 1.23 MG/DL (0.60-1.10); GLUCOSE 141 MG/DL (70-104); LIPASE 1058 U/L (73-393); MAGNESIUM 2.2 MG/DL (1.5-2.4); PHOSPHORUS 2.3 MG/DL (2.3-4.5); POTASSIUM 4.2 MMOL/L (3.5-5.1); SODIUM 148 MMOL/L (135-145); TOTAL CARBON DIOXIDE 25.6 MMOL/L (24-32); TOTAL PROTEIN 5.6 G/DL (6.4-8.2); VANCOMYCIN,RANDOM 9.2 UG/ML; eGFR 61 ML/MIN
[2021-02-22] MEDS: nitroGLYCERIN-Tridil 50MG/D5W 250 ML IV PRN (04:43)
--- NOTE | 2021-02-22 06:00 | NUR ---
Problems reprioritized. Patient report given, questions answered & plan of care reviewed with Fatuma PACHECO.
[2021-02-22] MEDS: pantoprazole 40 MG vial IV SCH (08:55)
[2021-02-22] MEDS: lactobacillus rhamnosus 10,000 MMU CELLS/CAPSULE PO SCH ×2 (08:55→20:00)
[2021-02-22] MEDS: thiamine inj. 100 MG in normal saline 100ml IV soln 100 ML IV SCH (08:56)
[2021-02-22] MEDS: heparin, porcine 5000 units/ml vial SQ SCH ×2 (08:56→21:31)
[2021-02-22] MEDS: folic acid 1mg/0.2ml inj IV SCH (08:56)
[2021-02-22] MEDS ORDERED: metoprolol tartrate 1mg/ml inj IV ONE (09:40)
[2021-02-22] MEDS: cloNIDine 0.1 mg tablet PO SCH ×2 (09:51→21:29)
[2021-02-22] MEDS ORDERED: labetalol 20mg/4ml (5mg/ml) syringe IV ONE (10:10)
--- NOTE | 2021-02-22 11:49 | NUR ---
DM Consult: Pt A1C 7.6 w/ no DM meds at home per clinical pharmacist and no prior hx DM in EMR likely new this admit. Upon extubation would benefit from DM DX by MD in order for RD to provide education. Noted pt propofol restarted at 15ml/hr this AM providing additional 396 kcals/day. Women Designer agreeable to RD TF titration given propofol rates. Updated TF recs below for Vital High Protein and Vital AF since currently national shortage of Vital High Protein. Unable to meet protein needs without overfeeding using Vital AF given current propofol rate. 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 No BM yet post-op s/p colostomy reversal. Will monitor for TF tolerance and adjustment needs. Recs: 1) Continuous TF using Vital HP at 75ml/hr goal to provide 1800ml volume/day, 1800 kcals, 1512ml water, and 158g protein. Unable to meet needs using Vital High Protein given current propofol rate. IF propofol off increase to 90ml/hr goal providing 2160ml volume, 2160kcals, 189g protein, and 1814ml water. 2) IF out of Vital High Protein use Vital AF at 62ml/hr goal to provide 1488ml volume/day, 1786kcals, 1205ml water, and 112g protein. Unable to meet needs given propofol rate, protein needs, and formula kcal density. IF propofol stopped increase to 76ml/hr goal rate to provide 1824ml volume/day, 1477ml water, 2189 kcals, and 137g protein. 3) unable to meet current protein needs without overfeeding given propofol rate and Vital High Protein national shortage 4) Additional free water 100ml Q4H; monitor serum Na 5) PALB QM/Th; daily wts 6) Routine bowel care 7) Monitor for TF tolerance Addendum: 02/22/21 at [address] Amended: Links added.
[2021-02-22] MEDS: diatr meglu/diatrizoate 30ml oral sol.-(3 dose) bottle PO SCH ×3 (12:54→18:00)
[2021-02-22] MEDS: propofol 1000mg/100ml bottle 100 ML IV SCH ×2 (15:09→21:24)
--- NOTE | 2021-02-22 20:40 | NUR ---
To CT on monitor with IV's infusing, with RN, RT and tech
[2021-02-22] MEDS: insulin glargine (Lantus) pen - multi-dose SQ SCH (21:00)
--- NOTE | 2021-02-22 21:15 | NUR ---
Returned from CT maynor procedure well
[2021-02-22] MEDS: polyethylene glycol 3350 17gm powd pack PO SCH (21:28)
[2021-02-22] MEDS: docusate sodium 100mg/10ml UD cup PO SCH (21:29)
[2021-02-23] VITALS (21 sets, daily range): BP systolic 94–123; BP diastolic 46–68
[2021-02-23] MEDS: dexamethasone inj 4 MG in normal saline 50ml IV soln 50 ML IV SCH ×4 (00:47→23:52)
[2021-02-23] MEDS: piperacillin/tazo 3.375gm/50ml 50 ML IV SCH ×3 (00:49→16:49)
[2021-02-23 04:13] LABS: PARTIAL THROMBOPLASTIN TIME 24 SECONDS (22-32)
[2021-02-23 04:19] LABS: ABG BASE EXCESS 0.7 mmol/L (-2.0-2.0); ABG HCO3 24.8 mmol/L (22.0-26.0); ABG PCO2 (T) 38.3 mmHg (35.0-48.0); ABG PO2 (T) 82.4 mmHg (75.0-100.0); FCOHb 0.3 % (0.0-3.9); FMetHb 0.3 % (0.0-1.5); FO2Hb 95.4 % (94-97); PATIENT TEMPERATURE 37.3; PEEP 5 cm H2O; RESPIRATORY RATE 18 b/min; TIDAL VOLUME 500 mL; TOTAL HEMOGLOBIN 11.4 G/dl (14.0-18.0)
[2021-02-23 04:26] LABS: ALANINE AMINOTRANSFERASE 49 U/L (12-78); ALBUMIN 2.6 G/DL (3.4-5.0); ALBUMIN/GLOBULIN RATIO 0.9 (1.1-1.5); ALKALINE PHOSPHATASE 39 IU/L (46-116); AMYLASE 204 U/L (25-115); ANION GAP 10 (8-16); ASPARTATE AMINO TRANSFERASE 33 U/L (10-37); BILIRUBIN,TOTAL 0.4 MG/DL (0.1-1.0); BLOOD UREA NITROGEN 31 MG/DL (7-18); BUN/CREATININE RATIO 30.7 (5.4-32.0); CHLORIDE 114 MMOL/L (99-107); CREATININE 1.01 MG/DL (0.60-1.10); GLUCOSE 145 MG/DL (70-104); LIPASE 683 U/L (73-393); MAGNESIUM 2.2 MG/DL (1.5-2.4); PHOSPHORUS 3.2 MG/DL (2.3-4.5); POTASSIUM 4.4 MMOL/L (3.5-5.1); SODIUM 148 MMOL/L (135-145); TOTAL PROTEIN 5.5 G/DL (6.4-8.2); eGFR 77 ML/MIN
[2021-02-23] MEDS: thiamine inj. 100 MG in normal saline 100ml IV soln 100 ML IV SCH (07:43)
[2021-02-23] MEDS: propofol 1000mg/100ml bottle 100 ML IV SCH ×2 (07:43→21:40)
[2021-02-23] MEDS: cloNIDine 0.1 mg tablet PO SCH ×3 (07:43→21:00)
[2021-02-23] MEDS: pantoprazole 40 MG vial IV SCH (07:44)
[2021-02-23] MEDS: heparin, porcine 5000 units/ml vial SQ SCH ×2 (07:44→20:01)
[2021-02-23] MEDS: docusate sodium 100mg/10ml UD cup PO SCH ×2 (07:44→20:00)
[2021-02-23] MEDS: lactobacillus rhamnosus 10,000 MMU CELLS/CAPSULE PO SCH ×2 (07:44→20:00)
[2021-02-23] MEDS: folic acid 1mg/0.2ml inj IV SCH (08:00)
[2021-02-23] MEDS ORDERED: VANCOmycin 1250MG/NS 250ml Bag 250 ML IV SCH (10:00)
[2021-02-23] MEDS: vancomycin/NS 1 GM ADD-VANTAGE 250 ML X 1 DOSE IV SCH ×2 (10:00→19:20)
[2021-02-23] MEDS: polyethylene glycol 3350 17gm powd pack PO SCH (20:01)
[2021-02-23] MEDS: insulin glargine (Lantus) pen - multi-dose SQ SCH (21:00)
[2021-02-23] MEDS: FENTANYL-0.9 % NACL/PF 100 ML IV PRN (21:41)
[2021-02-24] VITALS (24 sets, daily range): BP systolic 103–180; BP diastolic 58–85
[2021-02-24] MEDS: piperacillin/tazo 3.375gm/50ml 50 ML IV SCH ×4 (00:34→23:27)
[2021-02-24] MEDS ORDERED: albumin (Human) 5% 250ml 250 ML IV ONE (01:10)
[2021-02-24] MEDS: vancomycin/NS 1 GM ADD-VANTAGE 250 ML X 1 DOSE IV SCH ×3 (02:00→17:15)
[2021-02-24 03:32] LABS: BASOPHILS % (AUTO) 0.3 % (0-1); EOSINOPHILS # (AUTO) 0.1 X10'3 (0-0.9); EOSINOPHILS % (AUTO) 0.5 % (0-6); HEMATOCRIT 32.6 % (42.0-52.0); HEMOGLOBIN 10.9 g/dl (14.0-17.9); LYMPHOCYTES # (AUTO) 0.8 X10'3 (1.1-4.8); MEAN CORPUSCULAR HEMOGLOBIN 28.4 PG (27.0-31.0); MEAN CORPUSCULAR HGB CONC 33.4 g/dL (33.0-36.5); MEAN CORPUSCULAR VOLUME 85.2 FL (78-98); MEAN PLATELET VOLUME 8.8 FL (7.4-10.4); MONOCYTES # (AUTO) 1.2 X10'3 (0-0.9); MONOCYTES % (AUTO) 9.1 % (2-12); NEUTROPHILS # (AUTO) 11.2 X10'3 (1.8-7.7); NEUTROPHILS % (AUTO) 84.1 % (42-75); PLATELET COUNT 176 X10'3 (140-440); RED BLOOD COUNT 3.83 X10'6 (4.70-6.10); RED CELL DISTRIBUTION WIDTH 14.3 % (11.5-14.5); WHITE BLOOD COUNT 13.3 X10'3 (4.5-11.0)
[2021-02-24 03:43] LABS: ALANINE AMINOTRANSFERASE 46 U/L (12-78); ALBUMIN 2.5 G/DL (3.4-5.0); ALBUMIN/GLOBULIN RATIO 0.8 (1.1-1.5); ALKALINE PHOSPHATASE 45 IU/L (46-116); ANION GAP 9 (8-16); ASPARTATE AMINO TRANSFERASE 21 U/L (10-37); BILIRUBIN,TOTAL 0.4 MG/DL (0.1-1.0); BLOOD UREA NITROGEN 32 MG/DL (7-18); BUN/CREATININE RATIO 30.5 (5.4-32.0); CALCIUM 8.1 MG/DL (8.5-10.1); CHLORIDE 113 MMOL/L (99-107); CREATININE 1.05 MG/DL (0.60-1.10); GLUCOSE 164 MG/DL (70-104); POTASSIUM 4.5 MMOL/L (3.5-5.1); SODIUM 147 MMOL/L (135-145); TOTAL CARBON DIOXIDE 25.2 MMOL/L (24-32); TOTAL PROTEIN 5.7 G/DL (6.4-8.2); eGFR 74 ML/MIN
[2021-02-24 04:18] LABS: ABG BASE EXCESS -1.5 mmol/L (-2.0-2.0); ABG HCO3 22.4 mmol/L (22.0-26.0); ABG OXYGEN SATURATION 94.8 % (94-97); ABG PCO2 (T) 35.3 mmHg (35.0-48.0); ABG PO2 (T) 77.2 mmHg (75.0-100.0); FCOHb 0.3 % (0.0-3.9); FMetHb 0.2 % (0.0-1.5); FO2Hb 94.3 % (94-97); PATIENT TEMPERATURE 37.2; PEEP 5 cm H2O; RESPIRATORY RATE 18 b/min; TIDAL VOLUME 500 mL; TOTAL HEMOGLOBIN 11.6 G/dl (14.0-18.0)
[2021-02-24 05:48] LABS: TOTAL CELLS COUNTED 100
[2021-02-24 06:01] LABS: PLATELET ESTIMATE NORMAL
[2021-02-24] MEDS: pantoprazole 40 MG vial IV SCH (08:14)
[2021-02-24] MEDS: cloNIDine 0.1 mg tablet PO SCH ×3 (08:14→20:20)
[2021-02-24] MEDS: lactobacillus rhamnosus 10,000 MMU CELLS/CAPSULE PO SCH ×2 (08:14→20:19)
[2021-02-24] MEDS: docusate sodium 100mg/10ml UD cup PO SCH ×2 (08:14→20:19)
[2021-02-24] MEDS: thiamine inj. 100 MG in normal saline 100ml IV soln 100 ML IV SCH (08:15)
[2021-02-24] MEDS: dexamethasone inj 4 MG in normal saline 50ml IV soln 50 ML IV SCH ×3 (08:15→23:26)
[2021-02-24] MEDS: heparin, porcine 5000 units/ml vial SQ SCH ×2 (08:16→20:19)
[2021-02-24] MEDS: folic acid 1mg/0.2ml inj IV SCH (08:50)
[2021-02-24] MEDS ORDERED: VANCOMYCIN LEVEL IV ONE (09:30)
[2021-02-24] MEDS: FENTANYL-0.9 % NACL/PF 100 ML IV PRN (16:59)
[2021-02-24] MEDS: polyethylene glycol 3350 17gm powd pack PO SCH (20:20)
[2021-02-24] MEDS: insulin glargine (Lantus) pen - multi-dose SQ SCH (20:44)
[2021-02-24] MEDS: propofol 1000mg/100ml bottle 100 ML IV SCH (23:26)
[2021-02-25] VITALS (34 sets, daily range): BP systolic 103–216; BP diastolic 54–93
[2021-02-25] MEDS: vancomycin/NS 1 GM ADD-VANTAGE 250 ML X 1 DOSE IV SCH ×2 (01:29→10:00)
[2021-02-25] MEDS: FENTANYL-0.9 % NACL/PF 100 ML IV PRN (01:30)
[2021-02-25 02:42] LABS: ABG BASE EXCESS 0.8 mmol/L (-2.0-2.0); ABG HCO3 24.6 mmol/L (22.0-26.0); ABG OXYGEN SATURATION 95.3 % (94-97); ABG PO2 (T) 77.1 mmHg (75.0-100.0); FCOHb 0.3 % (0.0-3.9); FMetHb 0.2 % (0.0-1.5); FO2Hb 94.8 % (94-97); PATIENT TEMPERATURE 37.2; PEEP 5 cm H2O; TOTAL HEMOGLOBIN 11.7 G/dl (14.0-18.0)
[2021-02-25] MEDS: piperacillin/tazo 3.375gm/50ml 50 ML IV SCH (07:22)
[2021-02-25] MEDS: pantoprazole 40 MG vial IV SCH (07:25)
[2021-02-25] MEDS: lactobacillus rhamnosus 10,000 MMU CELLS/CAPSULE PO SCH ×2 (07:25→20:00)
[2021-02-25] MEDS: thiamine inj. 100 MG in normal saline 100ml IV soln 100 ML IV SCH (07:25)
[2021-02-25] MEDS: cloNIDine 0.1 mg tablet PO SCH ×3 (07:25→20:21)
[2021-02-25] MEDS: heparin, porcine 5000 units/ml vial SQ SCH ×2 (07:26→20:21)
[2021-02-25] MEDS: docusate sodium 100mg/10ml UD cup PO SCH (07:26)
[2021-02-25] MEDS: propofol 1000mg/100ml bottle 100 ML IV SCH (07:41)
[2021-02-25] MEDS: dexamethasone inj 4 MG in normal saline 50ml IV soln 50 ML IV SCH ×3 (08:04→23:11)
[2021-02-25] MEDS: folic acid 1mg/0.2ml inj IV SCH (08:58)
[2021-02-25] MEDS ORDERED: VANCOMYCIN LEVEL IV ONE (09:30)
[2021-02-25 10:30] LABS: ALANINE AMINOTRANSFERASE 45 U/L (12-78); ALBUMIN 2.4 G/DL (3.4-5.0); ALBUMIN/GLOBULIN RATIO 0.7 (1.1-1.5); ALKALINE PHOSPHATASE 46 IU/L (46-116); ANION GAP 7 (8-16); ASPARTATE AMINO TRANSFERASE 20 U/L (10-37); BILIRUBIN,TOTAL 0.5 MG/DL (0.1-1.0); BLOOD UREA NITROGEN 32 MG/DL (7-18); BUN/CREATININE RATIO 35.2 (5.4-32.0); CALCIUM 7.9 MG/DL (8.5-10.1); CHLORIDE 112 MMOL/L (99-107); CREATININE 0.91 MG/DL (0.60-1.10); GLUCOSE 151 MG/DL (70-104); POTASSIUM 4.3 MMOL/L (3.5-5.1); SODIUM 146 MMOL/L (135-145); TOTAL CARBON DIOXIDE 26.7 MMOL/L (24-32); TOTAL PROTEIN 5.7 G/DL (6.4-8.2); eGFR 87 ML/MIN
[2021-02-25 10:31] LABS: C-REACTIVE PROTEIN 1.83 MG/DL (0.0-0.5); PREALBUMIN 25.1 MG/DL (19-36); VANCOMYCIN,TROUGH 11.6 UG/ML (6.0-14.0)
--- NOTE | 2021-02-25 11:53 | NUR ---
Reassessment: Pt currently receiving TF at goal using Vital AF at 60ml/hr given Vital High Protein unavailable. Pt remains intubated and sedated; Propofol currently at 11.233ml/hr providing 299kcals/day though pt may be extubated today per Emergency Department. Recs below for Vital High Protein and Vital AF since currently national shortage of Vital High Protein. Unable to meet protein needs without overfeeding using Vital AF given current propofol rate. [facility] 02/23. Will continue to monitor TF tolerance and adjust needs as medically indicated. Recs: 1) Continuous TF using Vital HP at 75ml/hr goal to provide 1800ml volume/day, 1800 kcals, 1512ml water, and 158g protein. Unable to meet needs using Vital High Protein given current propofol rate. IF propofol off increase to 90ml/hr goal providing 2160ml volume, 2160kcals, 189g protein, and 1814ml water. 2) IF out of Vital High Protein use Vital AF at 62ml/hr goal to provide 1488ml volume/day, 1786kcals, 1205ml water, and 112g protein. Unable to meet needs given propofol rate, protein needs, and formula kcal density. IF propofol stopped increase to 76ml/hr goal rate to provide 1824ml volume/day, 1477ml water, 2189 kcals, and 137g protein. 3) unable to meet current protein needs without overfeeding given propofol rate and Vital High Protein national shortage 4) Additional free water 100ml Q4H; monitor serum Na 5) PALB QM/Th; daily wts 6) Routine bowel care 7) Monitor for TF tolerance 8) Upon extubation, advance to Regular diet per SOLUTION SPECIALIST/ Addendum: 02/25/21 at [address] Amended: Links added.
[2021-02-25] MEDS: diltiazem-NS 100mg/100ml 100 ML IV PRN ×2 (14:09→19:26)
[2021-02-25 14:16] LABS: BASOPHILS % (AUTO) 0.4 % (0-1); EOSINOPHILS # (AUTO) 0.1 X10'3 (0-0.9); EOSINOPHILS % (AUTO) 0.5 % (0-6); HEMATOCRIT 33.8 % (42.0-52.0); HEMOGLOBIN 11.5 g/dl (14.0-17.9); LYMPHOCYTES # (AUTO) 0.8 X10'3 (1.1-4.8); LYMPHOCYTES % (AUTO) 7.5 % (21-51); MEAN CORPUSCULAR HGB CONC 34.1 g/dL (33.0-36.5); MEAN CORPUSCULAR VOLUME 85.1 FL (78-98); MEAN PLATELET VOLUME 8.9 FL (7.4-10.4); MONOCYTES # (AUTO) 0.9 X10'3 (0-0.9); MONOCYTES % (AUTO) 7.9 % (2-12); NEUTROPHILS % (AUTO) 83.7 % (42-75); PLATELET COUNT 180 X10'3 (140-440); RED BLOOD COUNT 3.98 X10'6 (4.70-6.10); RED CELL DISTRIBUTION WIDTH 14.3 % (11.5-14.5); WHITE BLOOD COUNT 10.8 X10'3 (4.5-11.0)
[2021-02-25 14:57] LABS: PLATELET ESTIMATE NORMAL; TOTAL CELLS COUNTED 100
[2021-02-25] MEDS ORDERED: labetalol 20mg/4ml (5mg/ml) syringe IV ONE ×3 (15:15→15:35)
[2021-02-25] MEDS ORDERED: racepinephrine 11.25mg/0.5ml nebule IH PRN (16:15)
[2021-02-25] MEDS ORDERED: albuterol 2.5 MG/3 ML nebule NEB PRN (16:15)
[2021-02-25] MEDS ORDERED: dexamethasone sod phosphate 10mg/ml inj IV ONE (16:20)
[2021-02-25] MEDS ORDERED: hydrALAZINE 20mg/ml inj. IV PRN (19:40)
[2021-02-25] MEDS: nitroGLYCERIN-Tridil 50MG/D5W 250 ML IV PRN (20:01)
[2021-02-25] MEDS: insulin glargine (Lantus) pen - multi-dose SQ SCH (20:39)
[2021-02-26] VITALS (27 sets, daily range): BP systolic 103–151; BP diastolic 57–81
[2021-02-26 03:57] LABS: BASOPHILS % (AUTO) 0.1 % (0-1); EOSINOPHILS # (AUTO) 0.1 X10'3 (0-0.9); EOSINOPHILS % (AUTO) 0.5 % (0-6); HEMATOCRIT 32.7 % (42.0-52.0); HEMOGLOBIN 11.1 g/dl (14.0-17.9); LYMPHOCYTES # (AUTO) 0.7 X10'3 (1.1-4.8); LYMPHOCYTES % (AUTO) 4.9 % (21-51); MEAN CORPUSCULAR HEMOGLOBIN 28.9 PG (27.0-31.0); MEAN CORPUSCULAR HGB CONC 33.8 g/dL (33.0-36.5); MEAN CORPUSCULAR VOLUME 85.3 FL (78-98); MONOCYTES # (AUTO) 1.4 X10'3 (0-0.9); NEUTROPHILS % (AUTO) 85.5 % (42-75); PLATELET COUNT 182 X10'3 (140-440); RED BLOOD COUNT 3.83 X10'6 (4.70-6.10); WHITE BLOOD COUNT 15.2 X10'3 (4.5-11.0)
[2021-02-26 04:14] LABS: ALANINE AMINOTRANSFERASE 53 U/L (12-78); ALBUMIN 2.3 G/DL (3.4-5.0); ALBUMIN/GLOBULIN RATIO 0.7 (1.1-1.5); ALKALINE PHOSPHATASE 50 IU/L (46-116); ANION GAP 7 (8-16); ASPARTATE AMINO TRANSFERASE 21 U/L (10-37); BILIRUBIN,TOTAL 0.6 MG/DL (0.1-1.0); BLOOD UREA NITROGEN 28 MG/DL (7-18); BUN/CREATININE RATIO 29.5 (5.4-32.0); CALCIUM 7.7 MG/DL (8.5-10.1); CHLORIDE 110 MMOL/L (99-107); CREATININE 0.95 MG/DL (0.60-1.10); GLUCOSE 151 MG/DL (70-104); POTASSIUM 3.7 MMOL/L (3.5-5.1); SODIUM 143 MMOL/L (135-145); TOTAL CARBON DIOXIDE 25.9 MMOL/L (24-32); TOTAL PROTEIN 5.5 G/DL (6.4-8.2); TRIGLYCERIDES 188 MG/DL (20-135); eGFR 83 ML/MIN
[2021-02-26] MEDS: folic acid 1mg/0.2ml inj IV SCH (08:32)
[2021-02-26] MEDS: dexamethasone inj 4 MG in normal saline 50ml IV soln 50 ML IV SCH ×2 (08:33→17:09)
[2021-02-26] MEDS: thiamine inj. 100 MG in normal saline 100ml IV soln 100 ML IV SCH (08:33)
[2021-02-26] MEDS: pantoprazole 40 MG vial IV SCH (08:34)
[2021-02-26] MEDS: heparin, porcine 5000 units/ml vial SQ SCH ×2 (08:35→19:30)
[2021-02-26] MEDS: cloNIDine 0.1 mg tablet PO SCH ×3 (08:35→22:30)
[2021-02-26] MEDS: lactobacillus rhamnosus 10,000 MMU CELLS/CAPSULE PO SCH ×2 (08:35→19:29)
[2021-02-26] MEDS: nitroGLYCERIN-Tridil 50MG/D5W 250 ML IV PRN (17:15)
[2021-02-26] MEDS: insulin glargine (Lantus) pen - multi-dose SQ SCH (22:28)
[2021-02-27] VITALS (32 sets, daily range): BP systolic 118–170; BP diastolic 47–93
[2021-02-27] MEDS: dexamethasone inj 4 MG in normal saline 50ml IV soln 50 ML IV SCH ×3 (00:53→13:53)
[2021-02-27 03:08] LABS: BASOPHILS % (AUTO) 0.1 % (0-1); EOSINOPHILS % (AUTO) 0.1 % (0-6); HEMATOCRIT 33.8 % (42.0-52.0); HEMOGLOBIN 11.4 g/dl (14.0-17.9); LYMPHOCYTES % (AUTO) 7.2 % (21-51); MEAN CORPUSCULAR HEMOGLOBIN 28.5 PG (27.0-31.0); MEAN CORPUSCULAR HGB CONC 33.8 g/dL (33.0-36.5); MEAN CORPUSCULAR VOLUME 84.3 FL (78-98); MONOCYTES # (AUTO) 1.1 X10'3 (0-0.9); MONOCYTES % (AUTO) 7.7 % (2-12); NEUTROPHILS # (AUTO) 12.4 X10'3 (1.8-7.7); NEUTROPHILS % (AUTO) 84.9 % (42-75); PLATELET COUNT 178 X10'3 (140-440); RED BLOOD COUNT 4.01 X10'6 (4.70-6.10); RED CELL DISTRIBUTION WIDTH 13.8 % (11.5-14.5); WHITE BLOOD COUNT 14.6 X10'3 (4.5-11.0)
[2021-02-27 03:23] LABS: ALANINE AMINOTRANSFERASE 47 U/L (12-78); ALBUMIN 2.4 G/DL (3.4-5.0); ALBUMIN/GLOBULIN RATIO 0.7 (1.1-1.5); ALKALINE PHOSPHATASE 52 IU/L (46-116); ANION GAP 8 (8-16); ASPARTATE AMINO TRANSFERASE 21 U/L (10-37); BILIRUBIN,TOTAL 0.7 MG/DL (0.1-1.0); BLOOD UREA NITROGEN 25 MG/DL (7-18); BUN/CREATININE RATIO 24.8 (5.4-32.0); CHLORIDE 105 MMOL/L (99-107); CREATININE 1.01 MG/DL (0.60-1.10); GLUCOSE 145 MG/DL (70-104); SODIUM 140 MMOL/L (135-145); TOTAL CARBON DIOXIDE 26.9 MMOL/L (24-32); TOTAL PROTEIN 5.7 G/DL (6.4-8.2); eGFR 77 ML/MIN
[2021-02-27] MEDS: insulin regular, human U-100 3ml vial - multi-dose SQ SCH ×2 (08:28→22:39)
[2021-02-27] MEDS: heparin, porcine 5000 units/ml vial SQ SCH ×2 (08:50→20:30)
[2021-02-27] MEDS: lactobacillus rhamnosus 10,000 MMU CELLS/CAPSULE PO SCH ×2 (08:50→20:18)
[2021-02-27] MEDS: cloNIDine 0.1 mg tablet PO SCH ×3 (08:50→20:19)
[2021-02-27] MEDS: pantoprazole 40 MG vial IV SCH (08:50)
[2021-02-27] MEDS: thiamine inj. 100 MG in normal saline 100ml IV soln 100 ML IV SCH (08:50)
[2021-02-27] MEDS: folic acid 1mg/0.2ml inj IV SCH (11:47)
--- NOTE | 2021-02-27 12:17 | NUR ---
f/u 02/27: Pt extubated 02/26, seen by ENVIRONMENTAL PROJECTS ADVISOR today for BSS, recommended Puree w/ NTL. Will continue TF and adjust needs as medically indicated if PO intake increases. Addendum: 02/27/21 at [address] Amended: Links added.
[2021-02-27] MEDS: amLODIPine 5mg tablet PO SCH (20:29)
[2021-02-27] MEDS: amantadine 100mg/10ml UD oral solution PO SCH (21:54)
[2021-02-27] MEDS: insulin glargine (Lantus) pen - multi-dose SQ SCH (22:02)
[2021-02-28] VITALS (35 sets, daily range): BP systolic 122–163; BP diastolic 59–87
[2021-02-28] MEDS: dexamethasone inj 4 MG in normal saline 50ml IV soln 50 ML IV SCH ×3 (00:51→15:00)
[2021-02-28 03:28] LABS: BASOPHILS # (AUTO) 0.1 X10'3 (0-0.2); BASOPHILS % (AUTO) 0.3 % (0-1); EOSINOPHILS # (AUTO) 0.2 X10'3 (0-0.9); EOSINOPHILS % (AUTO) 0.8 % (0-6); HEMATOCRIT 37.3 % (42.0-52.0); HEMOGLOBIN 12.5 g/dl (14.0-17.9); LYMPHOCYTES # (AUTO) 1.1 X10'3 (1.1-4.8); LYMPHOCYTES % (AUTO) 5.7 % (21-51); MEAN CORPUSCULAR HEMOGLOBIN 28.6 PG (27.0-31.0); MEAN CORPUSCULAR HGB CONC 33.6 g/dL (33.0-36.5); MONOCYTES # (AUTO) 1.5 X10'3 (0-0.9); NEUTROPHILS # (AUTO) 16.3 X10'3 (1.8-7.7); NEUTROPHILS % (AUTO) 85.2 % (42-75); PLATELET COUNT 176 X10'3 (140-440); RED BLOOD COUNT 4.38 X10'6 (4.70-6.10); WHITE BLOOD COUNT 19.1 X10'3 (4.5-11.0)
[2021-02-28 03:42] LABS: ALANINE AMINOTRANSFERASE 43 U/L (12-78); ALBUMIN 2.5 G/DL (3.4-5.0); ALBUMIN/GLOBULIN RATIO 0.7 (1.1-1.5); ALKALINE PHOSPHATASE 58 IU/L (46-116); ANION GAP 7 (8-16); ASPARTATE AMINO TRANSFERASE 16 U/L (10-37); BILIRUBIN,TOTAL 0.7 MG/DL (0.1-1.0); BLOOD UREA NITROGEN 25 MG/DL (7-18); BUN/CREATININE RATIO 27.8 (5.4-32.0); CALCIUM 7.9 MG/DL (8.5-10.1); CHLORIDE 107 MMOL/L (99-107); GLUCOSE 120 MG/DL (70-104); POTASSIUM 3.8 MMOL/L (3.5-5.1); PREALBUMIN 28.5 MG/DL (19-36); SODIUM 142 MMOL/L (135-145); TOTAL CARBON DIOXIDE 27.9 MMOL/L (24-32); TOTAL PROTEIN 5.9 G/DL (6.4-8.2); eGFR 88 ML/MIN
[2021-02-28 06:27] LABS: TOTAL CELLS COUNTED 100
[2021-02-28 06:28] LABS: PLATELET ESTIMATE NORMAL
[2021-02-28] MEDS: thiamine inj. 100 MG in normal saline 100ml IV soln 100 ML IV SCH (08:06)
[2021-02-28] MEDS: lactobacillus rhamnosus 10,000 MMU CELLS/CAPSULE PO SCH ×2 (08:06→20:59)
[2021-02-28] MEDS: amLODIPine 5mg tablet PO SCH (08:07)
[2021-02-28] MEDS: cloNIDine 0.1 mg tablet PO SCH ×3 (08:07→20:58)
[2021-02-28] MEDS: heparin, porcine 5000 units/ml vial SQ SCH ×2 (08:08→21:00)
[2021-02-28] MEDS: pantoprazole 40 MG vial IV SCH (08:08)
[2021-02-28] MEDS: amantadine 100mg/10ml UD oral solution PO SCH ×3 (08:09→21:00)
[2021-02-28] MEDS: folic acid 1mg/0.2ml inj IV SCH (08:14)
[2021-02-28 11:00] LABS: C-REACTIVE PROTEIN 0.78 MG/DL (0.0-0.5)
--- NOTE | 2021-02-28 12:23 | NUR ---
F/u 02/28: Pt advanced to MM5/thin diet this AM per SPORTS CENTRE MANAGER recs w/ NG removed no longer receiving EN. Per RN pt eating well however no PO documentation since diet advances; nutrition intake intervention added to EMR so meal intake could be charted. Pt requires assistance w/ meals given vision issues otherwise no PO issues per RN. A1C 7.6 w/ no prior DM hx in EMR; RD d/w RN regarding MD notification this admit since unable to educate until official DM DX by MD. PALB 28.5 this AM. LBM 02/27 per EMR. Will continue to monitor for PO documentation trends and ONS needs. Recs: 1) continue MM5/thin diet per SPORTS CENTRE MANAGER recs; consider low-residue addition per MD discretion 2) pending PO trends and subsequent Glu; consider carb controlled restriction given A1C 7.6% 3) Monitor for ONS needs pending further PO documentation 4) routine bowel care 5) weekly wts 6) DM ed once appropriate prior to discharge following MD DX; A1C 7.6% no hx DM previously in EMR Addendum: 02/28/21 at [address] Amended: Links added.
[2021-02-28] MEDS ORDERED: insulin Lispro (HumaLOG) vial - multi-dose SQ SCH ×2 (13:37→17:00)
[2021-02-28] MEDS: insulin glargine (Lantus) pen - multi-dose SQ SCH (21:16)
[2021-03-01] VITALS (22 sets, daily range): BP systolic 106–180; BP diastolic 58–92
[2021-03-01] MEDS: dexamethasone inj 4 MG in normal saline 50ml IV soln 50 ML IV SCH ×4 (00:33→23:41)
[2021-03-01 04:32] LABS: BASOPHILS % (AUTO) 0.2 % (0-1); EOSINOPHILS % (AUTO) 0.1 % (0-6); HEMATOCRIT 40.4 % (42.0-52.0); HEMOGLOBIN 13.4 g/dl (14.0-17.9); LYMPHOCYTES # (AUTO) 1.2 X10'3 (1.1-4.8); LYMPHOCYTES % (AUTO) 5.1 % (21-51); MEAN CORPUSCULAR HEMOGLOBIN 28.7 PG (27.0-31.0); MEAN CORPUSCULAR HGB CONC 33.3 g/dL (33.0-36.5); MEAN CORPUSCULAR VOLUME 86.2 FL (78-98); MEAN PLATELET VOLUME 8.9 FL (7.4-10.4); MONOCYTES # (AUTO) 1.3 X10'3 (0-0.9); MONOCYTES % (AUTO) 5.6 % (2-12); NEUTROPHILS # (AUTO) 21.3 X10'3 (1.8-7.7); PLATELET COUNT 173 X10'3 (140-440); RED BLOOD COUNT 4.69 X10'6 (4.70-6.10); RED CELL DISTRIBUTION WIDTH 14.5 % (11.5-14.5); WHITE BLOOD COUNT 23.9 X10'3 (4.5-11.0)
[2021-03-01 04:45] LABS: ALANINE AMINOTRANSFERASE 49 U/L (12-78); ALBUMIN 2.7 G/DL (3.4-5.0); ALBUMIN/GLOBULIN RATIO 0.8 (1.1-1.5); ALKALINE PHOSPHATASE 62 IU/L (46-116); ANION GAP 8 (8-16); ASPARTATE AMINO TRANSFERASE 17 U/L (10-37); BLOOD UREA NITROGEN 26 MG/DL (7-18); BUN/CREATININE RATIO 25.7 (5.4-32.0); C-REACTIVE PROTEIN 0.51 MG/DL (0.0-0.5); CALCIUM 8.1 MG/DL (8.5-10.1); CHLORIDE 105 MMOL/L (99-107); CREATININE 1.01 MG/DL (0.60-1.10); GLUCOSE 121 MG/DL (70-104); POTASSIUM 4.3 MMOL/L (3.5-5.1); SODIUM 140 MMOL/L (135-145); TOTAL CARBON DIOXIDE 27.4 MMOL/L (24-32); TOTAL PROTEIN 6.3 G/DL (6.4-8.2); eGFR 77 ML/MIN
[2021-03-01 07:12] LABS: PLATELET ESTIMATE NORMAL; TOTAL CELLS COUNTED 100
[2021-03-01] MEDS: thiamine inj. 100 MG in normal saline 100ml IV soln 100 ML IV SCH (08:04)
[2021-03-01] MEDS: amLODIPine 5mg tablet PO SCH (08:04)
[2021-03-01] MEDS: lactobacillus rhamnosus 10,000 MMU CELLS/CAPSULE PO SCH ×2 (08:04→21:12)
[2021-03-01] MEDS: cloNIDine 0.1 mg tablet PO SCH ×3 (08:04→21:00)
[2021-03-01] MEDS: pantoprazole 40 MG vial IV SCH (08:04)
[2021-03-01] MEDS: heparin, porcine 5000 units/ml vial SQ SCH ×2 (08:05→21:13)
[2021-03-01] MEDS: folic acid 1mg/0.2ml inj IV SCH (08:05)
[2021-03-01] MEDS: amantadine 100mg/10ml UD oral solution PO SCH ×3 (08:37→21:13)
[2021-03-01 10:48] LABS: CLARITY,URINE CLEAR (Clear); COLOR,URINE YELLOW (Yellow); GLUCOSE, URINE NEGATIVE (Neg); KETONES,URINE NEGATIVE (Neg); LEUKOCYTE ESTERASE ,URINE NEGATIVE (Neg); NITRITES, URINE NEGATIVE (Neg); OCCULT BLOOD,URINE SMALL (Neg); PH,URINE 6.5 (4.8-8.0); PROTEIN,URINE NEGATIVE (Neg); UA COLLECTION TYPE CLN CATCH MIDSTREAM; UROBILINOGEN,URINE 0.2 E.U/dL (0.2-1.0)
[2021-03-01 10:53] LABS: BACTERIA,URINE FEW /HPF (Neg); MUCUS STRANDS NONE SEEN /LPF (Neg); SQUAMOUS EPITHELIAL CELL,UR NONE SEEN /LPF (FEW); WBC,URINE 0-4 /HPF (0-4)
--- NOTE | 2021-03-01 11:21 | NUR ---
F/u 03/01: RD notified MD of A1C 7.6; pt yet to be notified of new DM DX at this time. Unable to provide education until DX provided. Addendum: 03/01/21 at [address] Amended: Links added.
[2021-03-01] MEDS: diatr meglu/diatrizoate 30ml oral sol.-(3 dose) bottle PO SCH ×3 (11:38→16:44)
[2021-03-01 12:03] LABS: AMYLASE 38 U/L (25-115); LIPASE 76 U/L (73-393)
[2021-03-01] MEDS ORDERED: iohexol 300mg/ml 100ml inj. ONE (12:09)
[2021-03-01] MEDS: piperacillin/tazobactam inj. 3.375 GM in NS 50ml IV SCH (17:47)
[2021-03-01] MEDS ORDERED: normal saline 1000ml 1,000 ML IV SCH (18:20)
--- NOTE | 2021-03-01 19:38 | NUR ---
Alert and verbally responsive. Denies any pain or any discomfort. Abdominal wounds with steri-strips to sites, well approximated with no s/s of infection. Left upper arm IV intact, site without redness, swelling or leakage. Voiding clear yellow urine without difficulties.
--- NOTE | 2021-03-01 19:41 | NUR ---
Transferring pt to room 3015A via W/C, report called to nurse Henning.
[2021-03-01] MEDS: insulin glargine (Lantus) pen - multi-dose SQ SCH (21:00)
[2021-03-02] MEDS: piperacillin/tazobactam inj. 3.375 GM in NS 50ml IV SCH ×3 (00:38→16:24)
[2021-03-02 02:00] VITALS: BP 142/72
[2021-03-02 06:00] VITALS: BP 146/82
--- NOTE | 2021-03-02 06:30 | NUR ---
Patient in room PCU 3015. I have received report from AMADO RN and had the opportunity to ask questions and assume patient care.
[2021-03-02] MEDS: lactobacillus rhamnosus 10,000 MMU CELLS/CAPSULE PO SCH ×2 (08:52→19:52)
[2021-03-02] MEDS: amantadine 100mg/10ml UD oral solution PO SCH ×3 (08:52→23:07)
[2021-03-02] MEDS: pantoprazole 40 MG vial IV SCH (08:53)
[2021-03-02] MEDS: heparin, porcine 5000 units/ml vial SQ SCH ×2 (08:53→19:52)
[2021-03-02] MEDS: amLODIPine 5mg tablet PO SCH (08:54)
[2021-03-02] MEDS: cloNIDine 0.1 mg tablet PO SCH ×3 (08:54→21:00)
[2021-03-02 11:00] VITALS: BP 128/70
[2021-03-02] MEDS: dexamethasone inj 4 MG in normal saline 50ml IV soln 50 ML IV SCH ×2 (11:08→15:23)
[2021-03-02 11:20] LABS: C DIFF ANTIGEN POSITIVE (NEGATIVE); C DIFF SPECIMEN=DIARRHEA? ACCEPTABLE
[2021-03-02 11:22] LABS: C DIFFICILE TOXINS A&B POSITIVE (Neg)
[2021-03-02] MEDS: thiamine inj. 100 MG in normal saline 100ml IV soln 100 ML IV SCH (12:42)
[2021-03-02 15:00] VITALS: BP 146/78
[2021-03-02] MEDS: folic acid 1mg tablet PO SCH (15:24)
[2021-03-02 18:00] VITALS: BP 136/74
--- NOTE | 2021-03-02 18:19 | NUR ---
Problems reprioritized. Patient report given, questions answered & plan of care reviewed with WILLY PACHECO.
--- NOTE | 2021-03-02 18:59 | NUR ---
Patient in room PCU 3009. I have received report from Domenico PACHECO and had the opportunity to ask questions and assume patient care.
[2021-03-02] MEDS: insulin glargine (Lantus) pen - multi-dose SQ SCH (21:00)
[2021-03-02 22:00] VITALS: BP 157/80
[2021-03-03] MEDS: piperacillin/tazobactam inj. 3.375 GM in NS 50ml IV SCH ×2 (00:49→08:24)
[2021-03-03] MEDS: dexamethasone inj 4 MG in normal saline 50ml IV soln 50 ML IV SCH ×3 (00:49→18:39)
[2021-03-03] MEDS ORDERED: HYDROcodone/acetaminophen 10/325mg tab PO ONE (01:15)
[2021-03-03 02:00] VITALS: BP 132/78
[2021-03-03 06:00] VITALS: BP 168/81
[2021-03-03 06:44] LABS: BASOPHILS % (AUTO) 0 % (0-1); EOSINOPHILS % (AUTO) 0.1 % (0-6); HEMATOCRIT 43.8 % (42.0-52.0); HEMOGLOBIN 14.6 g/dl (14.0-17.9); LYMPHOCYTES % (AUTO) 4.3 % (21-51); MEAN CORPUSCULAR HEMOGLOBIN 28.4 PG (27.0-31.0); MEAN CORPUSCULAR HGB CONC 33.4 g/dL (33.0-36.5); MEAN PLATELET VOLUME 9.5 FL (7.4-10.4); MONOCYTES # (AUTO) 1.1 X10'3 (0-0.9); MONOCYTES % (AUTO) 4.9 % (2-12); NEUTROPHILS # (AUTO) 20.8 X10'3 (1.8-7.7); NEUTROPHILS % (AUTO) 90.7 % (42-75); PLATELET COUNT 158 X10'3 (140-440); RED BLOOD COUNT 5.16 X10'6 (4.70-6.10); RED CELL DISTRIBUTION WIDTH 14.2 % (11.5-14.5)
--- NOTE | 2021-03-03 06:49 | NUR ---
Patient in room PCU 3009. I have received report from Lavern PACHECO and had the opportunity to ask questions and assume patient care.
--- NOTE | 2021-03-03 06:51 | NUR ---
Patient in room PCU 3009. I have received report from Lavern and had the opportunity to ask questions and assume patient care.
[2021-03-03 06:56] LABS: ALANINE AMINOTRANSFERASE 85 U/L (12-78); ALBUMIN 2.9 G/DL (3.4-5.0); ALBUMIN/GLOBULIN RATIO 0.9 (1.1-1.5); ALKALINE PHOSPHATASE 80 IU/L (46-116); ANION GAP 9 (8-16); ASPARTATE AMINO TRANSFERASE 25 U/L (10-37); BILIRUBIN,TOTAL 1.3 MG/DL (0.1-1.0); BLOOD UREA NITROGEN 30 MG/DL (7-18); BUN/CREATININE RATIO 29.4 (5.4-32.0); CALCIUM 8.2 MG/DL (8.5-10.1); CHLORIDE 104 MMOL/L (99-107); CREATININE 1.02 MG/DL (0.60-1.10); GLUCOSE 133 MG/DL (70-104); POTASSIUM 4.2 MMOL/L (3.5-5.1); SODIUM 137 MMOL/L (135-145); TOTAL CARBON DIOXIDE 24.4 MMOL/L (24-32); TOTAL PROTEIN 6.2 G/DL (6.4-8.2); eGFR 76 ML/MIN
[2021-03-03] MEDS: amantadine 100mg/10ml UD oral solution PO SCH ×3 (08:00→19:48)
--- NOTE | 2021-03-03 08:20 | NUR ---
Problems reprioritized. Patient report given, questions answered & plan of care reviewed with Bridget PACHECO.
[2021-03-03] MEDS: thiamine 100mg tablet PO SCH (08:28)
[2021-03-03] MEDS: folic acid 1mg tablet PO SCH (08:28)
[2021-03-03] MEDS: lactobacillus rhamnosus 10,000 MMU CELLS/CAPSULE PO SCH ×2 (08:28→19:47)
[2021-03-03] MEDS: amLODIPine 5mg tablet PO SCH (08:28)
[2021-03-03] MEDS: pantoprazole 40 MG vial IV SCH (08:29)
[2021-03-03] MEDS: heparin, porcine 5000 units/ml vial SQ SCH ×2 (08:32→19:48)
[2021-03-03 10:36] LABS: TOTAL CELLS COUNTED 100
[2021-03-03 10:37] LABS: BURR CELLS FEW; PLATELET ESTIMATE NORMAL
[2021-03-03] MEDS: cloNIDine 0.1 mg tablet PO SCH ×3 (11:20→19:48)
--- NOTE | 2021-03-03 13:29 | NUR ---
f/u 03/03: Pt continues on MM5 diet eating avg 55% x [address] assessment, noted to need moderate assistance w/ meals. Pt may benefit from Ensure Enlive BID to help meet nutrient needs. LBM 03/02. RD d/w RN regarding MD notification this admit since unable to educate until official DM DX by MD. Will continue to monitor and make recommendations as appropriate. Recs: 1) continue MM5/thin diet per TIMBER POISONER recs; consider low-residue addition per MD discretion 2) IF PO intake improves, consider Carb controlled diet 3) Ensure Enlive BID BD, pending MD approval 4) routine bowel care 5) weekly wts 6) DM ed once appropriate prior to discharge following MD DX; A1C 7.6% no hx DM previously in EMR Addendum: 03/03/21 at [address] Amended: Links added.
--- NOTE | 2021-03-03 14:44 | NUR ---
Discovered hives on patients torso he is not symptomatic. I called Dr. Triplett to let him know and he was busy. The patient is not itching but I wanted to inform provider.
[2021-03-03] MEDS ORDERED: diphenhydrAMINE 50 mg/ml inj IV ONE (14:50)
[2021-03-03] MEDS: lactose-reduced food (Ensure Enlive) - 237ml bottle PO SCH (17:30)
[2021-03-03 18:00] VITALS: BP 143/69
[2021-03-03] MEDS: metroNIDAZOLE-Flagyl 500mg/NS 100 ML IV SCH (19:47)
[2021-03-03] MEDS: insulin glargine (Lantus) pen - multi-dose SQ SCH (21:00)
[2021-03-03 22:00] VITALS: BP 142/96
[2021-03-04] MEDS: dexamethasone inj 4 MG in normal saline 50ml IV soln 50 ML IV SCH ×3 (00:15→15:21)
[2021-03-04] MEDS: metroNIDAZOLE-Flagyl 500mg/NS 100 ML IV SCH ×2 (00:15→09:34)
[2021-03-04 06:00] VITALS: BP 126/62
--- NOTE | 2021-03-04 06:08 | NUR ---
Problems reprioritized. Patient report given, questions answered & plan of care reviewed with JUNIOR Orta.
[2021-03-04 06:18] LABS: BASOPHILS % (AUTO) 0.1 % (0-1); EOSINOPHILS % (AUTO) 0 % (0-6); HEMATOCRIT 41.7 % (42.0-52.0); HEMOGLOBIN 14.3 g/dl (14.0-17.9); LYMPHOCYTES % (AUTO) 5.7 % (21-51); MEAN CORPUSCULAR HEMOGLOBIN 29.1 PG (27.0-31.0); MEAN CORPUSCULAR HGB CONC 34.3 g/dL (33.0-36.5); MEAN CORPUSCULAR VOLUME 84.7 FL (78-98); MEAN PLATELET VOLUME 9.6 FL (7.4-10.4); MONOCYTES # (AUTO) 0.7 X10'3 (0-0.9); MONOCYTES % (AUTO) 4.2 % (2-12); NEUTROPHILS # (AUTO) 15.5 X10'3 (1.8-7.7); PLATELET COUNT 150 X10'3 (140-440); RED BLOOD COUNT 4.92 X10'6 (4.70-6.10); RED CELL DISTRIBUTION WIDTH 14.4 % (11.5-14.5); WHITE BLOOD COUNT 17.2 X10'3 (4.5-11.0)
[2021-03-04 06:35] LABS: ALANINE AMINOTRANSFERASE 76 U/L (12-78); ALBUMIN 2.8 G/DL (3.4-5.0); ALBUMIN/GLOBULIN RATIO 0.8 (1.1-1.5); ALKALINE PHOSPHATASE 75 IU/L (46-116); ANION GAP 8 (8-16); ASPARTATE AMINO TRANSFERASE 15 U/L (10-37); BILIRUBIN,TOTAL 1.3 MG/DL (0.1-1.0); BLOOD UREA NITROGEN 28 MG/DL (7-18); BUN/CREATININE RATIO 30.8 (5.4-32.0); CALCIUM 8.3 MG/DL (8.5-10.1); CHLORIDE 102 MMOL/L (99-107); CREATININE 0.91 MG/DL (0.60-1.10); GLUCOSE 143 MG/DL (70-104); POTASSIUM 4.4 MMOL/L (3.5-5.1); PREALBUMIN 37.2 MG/DL (19-36); SODIUM 134 MMOL/L (135-145); TOTAL CARBON DIOXIDE 23.6 MMOL/L (24-32); TOTAL PROTEIN 6.2 G/DL (6.4-8.2); eGFR 87 ML/MIN
--- NOTE | 2021-03-04 07:02 | NUR ---
Patient in room PCU 3009. I have received report from STEFFANY PACHECO and had the opportunity to ask questions and assume patient care.
[2021-03-04] MEDS: lactose-reduced food (Ensure Enlive) - 237ml bottle PO SCH ×2 (07:30→17:30)
[2021-03-04] MEDS: amantadine 100mg/10ml UD oral solution PO SCH ×4 (08:00→21:13)
[2021-03-04] MEDS: cloNIDine 0.1 mg tablet PO SCH ×3 (08:00→20:49)
[2021-03-04] MEDS: heparin, porcine 5000 units/ml vial SQ SCH ×2 (09:35→20:46)
[2021-03-04] MEDS: thiamine 100mg tablet PO SCH (09:35)
[2021-03-04] MEDS: lactobacillus rhamnosus 10,000 MMU CELLS/CAPSULE PO SCH ×2 (09:35→20:00)
[2021-03-04] MEDS: pantoprazole 40 MG vial IV SCH (09:35)
[2021-03-04] MEDS: folic acid 1mg tablet PO SCH (09:35)
[2021-03-04] MEDS: amLODIPine 5mg tablet PO SCH (09:36)
[2021-03-04 09:58] LABS: PLATELET ESTIMATE NORMAL; TOTAL CELLS COUNTED 100
--- NOTE | 2021-03-04 10:22 | NUR ---
PAGER ID: [phone] MESSAGE: Dr. Novak just saw Malachi Carlson [phone] and wants a neuro consult and ophthalmology consult before discharge. Thank you, Marivel [id number]
[2021-03-04 15:00] VITALS: BP 136/72
[2021-03-04] MEDS: metroNIDAZOLE 500mg tablet PO SCH (15:21)
[2021-03-04 18:00] VITALS: BP_SYST 131; BP_SYST 144; BP_DIAS 79; BP_DIAS 80
--- NOTE | 2021-03-04 18:19 | NUR ---
Problems reprioritized. Patient report given, questions answered & plan of care reviewed with Gena PACHECO.
[2021-03-04] MEDS: insulin glargine (Lantus) pen - multi-dose SQ SCH (21:00)
[2021-03-04 22:00] VITALS: BP_SYST 114; BP_SYST 142; BP_DIAS 46; BP_DIAS 75
[2021-03-05] MEDS: dexamethasone inj 4 MG in normal saline 50ml IV soln 50 ML IV SCH ×2 (00:22→08:40)
[2021-03-05] MEDS: metroNIDAZOLE 500mg tablet PO SCH ×2 (00:22→08:38)
--- NOTE | 2021-03-05 06:20 | NUR ---
Problems reprioritized. Patient report given, questions answered & plan of care reviewed with Angle.
[2021-03-05 06:49] LABS: BASOPHILS % (AUTO) 0.1 % (0-1); EOSINOPHILS % (AUTO) 0 % (0-6); HEMATOCRIT 42.4 % (42.0-52.0); HEMOGLOBIN 14.2 g/dl (14.0-17.9); LYMPHOCYTES % (AUTO) 7.1 % (21-51); MEAN CORPUSCULAR HEMOGLOBIN 28.5 PG (27.0-31.0); MEAN CORPUSCULAR HGB CONC 33.5 g/dL (33.0-36.5); MEAN CORPUSCULAR VOLUME 85.1 FL (78-98); MEAN PLATELET VOLUME 9.2 FL (7.4-10.4); MONOCYTES # (AUTO) 0.6 X10'3 (0-0.9); MONOCYTES % (AUTO) 4.3 % (2-12); NEUTROPHILS % (AUTO) 88.5 % (42-75); PLATELET COUNT 151 X10'3 (140-440); RED BLOOD COUNT 4.99 X10'6 (4.70-6.10); RED CELL DISTRIBUTION WIDTH 14.2 % (11.5-14.5); WHITE BLOOD COUNT 14.7 X10'3 (4.5-11.0)
[2021-03-05 07:00] VITALS: BP 132/68
[2021-03-05 07:26] LABS: ALANINE AMINOTRANSFERASE 95 U/L (12-78); ALBUMIN 2.9 G/DL (3.4-5.0); ALBUMIN/GLOBULIN RATIO 0.9 (1.1-1.5); ALKALINE PHOSPHATASE 82 IU/L (46-116); ANION GAP 8 (8-16); ASPARTATE AMINO TRANSFERASE 20 U/L (10-37); BILIRUBIN,TOTAL 1.3 MG/DL (0.1-1.0); BLOOD UREA NITROGEN 30 MG/DL (7-18); BUN/CREATININE RATIO 30.9 (5.4-32.0); CALCIUM 8.4 MG/DL (8.5-10.1); CHLORIDE 102 MMOL/L (99-107); CREATININE 0.97 MG/DL (0.60-1.10); GLUCOSE 150 MG/DL (70-104); POTASSIUM 4.6 MMOL/L (3.5-5.1); SODIUM 135 MMOL/L (135-145); TOTAL CARBON DIOXIDE 25.2 MMOL/L (24-32); TOTAL PROTEIN 6.1 G/DL (6.4-8.2); TRIGLYCERIDES 65 MG/DL (20-135); eGFR 81 ML/MIN
[2021-03-05] MEDS ORDERED: pantoprazole 40mg Tablet.DR PO SCH (07:30)
[2021-03-05] MEDS: cloNIDine 0.1 mg tablet PO SCH ×2 (08:00→13:00)
[2021-03-05] MEDS: thiamine 100mg tablet PO SCH (08:38)
[2021-03-05] MEDS: heparin, porcine 5000 units/ml vial SQ SCH (08:38)
[2021-03-05] MEDS: lactobacillus rhamnosus 10,000 MMU CELLS/CAPSULE PO SCH (08:39)
[2021-03-05] MEDS: folic acid 1mg tablet PO SCH (08:39)
[2021-03-05 08:40] VITALS: BP_SYST 132
[2021-03-05] MEDS: amLODIPine 5mg tablet PO SCH (08:40)
[2021-03-05] MEDS: amantadine 100mg/10ml UD oral solution PO SCH ×2 (08:41→14:07)
[2021-03-05] MEDS: lactose-reduced food (Ensure Enlive) - 237ml bottle PO SCH (08:42)
--- NOTE | 2021-03-05 12:08 | NUR ---
PAGER ID: [phone] MESSAGE: Malachi Carlson [id number] is agitated and reported he was getting discharged this morning. What time is he getting discharged? Thank you, Marivel shaffer [phone]
[2021-03-05] MEDS ORDERED: thiamine tablet PO (13:57)
[2021-03-05] MEDS ORDERED: METR-159 PO (13:57)
[2021-03-05] MEDS ORDERED: NOR5T PO (13:57)
[2021-03-05] MEDS ORDERED: folic acid tablet PO (13:57)
[2021-03-05] MEDS ORDERED: METF-436 PO (13:57)
[2021-03-05] MEDS ORDERED: CLON0.1T2 PO (13:57)
--- NOTE | 2021-03-05 16:14 | NUR ---
[place] documentation: I have reviewed and agree with all interventions, assessments performed and documented by Marivel PACHECO.
--- NOTE | 2021-03-05 16:15 | NUR ---
[place] Medication Administration: For this medication-pass time frame, all medication were reviewed, dispensed, administered and documented per hospital policy by Marivel PACHECO.
== END 2021-03-05 15:22 | disposition home health service (06) | DRG 231 ==
LOC: PAS IN 05:27 → ICU 2S 14:02 → PCU 3S 03-01 20:45
PROVIDERS: ADMIT Colon & Rectal Surgery; ATTEND Colon & Rectal Surgery
PROC: 06HY33Z Insertion of Infusion Device into Lower Vein, Percutaneous Approach (ICD-10-PCS; 2021-02-18)
PROC: 0DNW0ZZ Release Peritoneum, Open Approach (ICD-10-PCS; 2021-02-18)
PROC: 03HY32Z Insertion of Monitoring Device into Upper Artery, Percutaneous Approach (ICD-10-PCS; 2021-02-18)
PROC: 5A12012 Performance of Cardiac Output, Single, Manual (ICD-10-PCS; 2021-02-18)
PROC: 0DJD8ZZ Inspection of Lower Intestinal Tract, Via Natural or Artificial Opening Endoscopic (ICD-10-PCS; 2021-02-18)
PROC: 0BH17EZ Insertion of Endotracheal Airway into Trachea, Via Natural or Artificial Opening (ICD-10-PCS; 2021-02-18)
PROC: 5A1955Z Respiratory Ventilation, Greater than 96 Consecutive Hours (ICD-10-PCS; 2021-02-18)
PROC: 3E0T3BZ Introduction of Anesthetic Agent into Peripheral Nerves and Plexi, Percutaneous Approach (ICD-10-PCS; 2021-02-18)
PROC: 0DBN0ZZ Excision of Sigmoid Colon, Open Approach (ICD-10-PCS; 2021-02-18)
PROC: 0DBE0ZZ Excision of Large Intestine, Open Approach (ICD-10-PCS; principal; 2021-02-18 07:33)
PROC: 0T788DZ Dilation of Bilateral Ureters with Intraluminal Device, Via Natural or Artificial Opening Endoscopic (ICD-10-PCS; 2021-02-18 07:33)
PROC: 4A10X4Z Monitoring of Central Nervous Electrical Activity, External Approach (ICD-10-PCS; 2021-02-19)
PROC: 4A10X4Z Monitoring of Central Nervous Electrical Activity, External Approach (ICD-10-PCS; 2021-02-20)
DX: Z43.3 Encounter for attention to colostomy (principal); I46.9 Cardiac arrest, cause unspecified; J95.821 Acute postprocedural respiratory failure; K85.90 Acute pancreatitis without necrosis or infection, unspecified; A04.72 Enterocolitis due to Clostridium difficile, not specified as recurrent; G93.1 Anoxic brain damage, not elsewhere classified; F17.200 Nicotine dependence, unspecified, uncomplicated; K66.0 Peritoneal adhesions (postprocedural) (postinfection); E11.9 Type 2 diabetes mellitus without complications; G47.30 Sleep apnea, unspecified; R00.1 Bradycardia, unspecified; F32.A Depression, unspecified; I10 Essential (primary) hypertension; Z20.822 Contact with and (suspected) exposure to COVID-19; N40.0 Benign prostatic hyperplasia without lower urinary tract symptoms; N20.0 Calculus of kidney; H53.9 Unspecified visual disturbance; E66.01 Morbid (severe) obesity due to excess calories; Y83.8 Other surgical procedures as the cause of abnormal reaction of the patient, or of later complication, without mention of misadventure at the time of the procedure; Y92.238 Other place in hospital as the place of occurrence of the external cause; Z85.038 Personal history of other malignant neoplasm of large intestine; Z87.442 Personal history of urinary calculi; Z92.21 Personal history of antineoplastic chemotherapy; Z90.49 Acquired absence of other specified parts of digestive tract; Z68.36 Body mass index [BMI] 36.0-36.9, adult
CPT/HCPCS: 36415; 36600; 70450; 70551; 71045; 71046; 74176; 76000; 76770; 76937; 80048; 80053; 80202; 81001; 81003; 82140; 82150; 82330; 82550; 82553; 82570; 82803; 82810; 82948; 83036; 83605; 83690; 83721; 83735; 83880; 84100; 84132; 84134; 84145; 84300; 84439; 84443; 84478; 84484; 84702; 85007; 85018; 85025; 85379; 85384; 85610; 85730; 86140; 86885; 86900; 86901; 87040; 87070; 87081; 87088; 87324; 87449; 92508; 92616; 92950; 93005; 93306; 94002; 94003; 94640; 94760; 94799; 95720; 97110; 97116; 97161; 97530; A4215; A4355; A4357; A4618; A6258; A6449; A7000; C1758; C1769; C9113; C9290; G0378; J0171; J0360; J0694; J1100; J1200; J1644; J1815; J1940; J2001; J2175; J2250; J2405; J2543; J2704; J2710; J3010; J3370; J3411; J3480; J3490; J7030; J7050; J7120; P9047; Q9963; Q9967; U0003; U0005